=== PATIENT | male | born 1950 | race Caucasian/White ===

== ENCOUNTER 2022-07-22 11:07 | Emergency (ER) | payer MEDICARE, MEDICAID, SELFPAY ==
--- NOTE | ~2022-07-22 | CT_ITS ---
EXAMINATION: CT BRAIN AND CT CERVICAL SPINE WITHOUT CONTRAST CLINICAL INFORMATION: Fall COMPARISON: None TECHNIQUE: 5 mm thin axial and reformatted 2 mm thin sagittal and coronal images of cervical spine were obtained without contrast. Subsequently axial 3 mm thin and reformatted 2 mm thin sagittal and coronal images of cervical spine were obtained. DLP: 1430 mGy-cm FINDINGS: BRAIN: There is no acute intra-axial, extra-axial bleed, masses or midline shift. No acute infarction in evolution. There is no edema. The lateral ventricles are symmetrical in size and configuration without enlargement. Bone windows reveal no calvarial abnormality. There is no scalp soft tissue abnormality. Bilateral paranasal sinuses and mastoid air cells are well-aerated. The exam is limited secondary to patient motion. CERVICAL SPINE: There is normal cervical lordosis. The vertebral heights, alignment are normal. There is loss of C3-C4, C4-C5, C5-C6 and C6-C7 disc heights with mild ventral and posterior cervical spondylosis. The craniovertebral junction and the C1-C2 alignment is normal. No acute fracture, dislocation or lytic process seen. The paravertebral soft tissues are normal. The airway is widely patent. Bilateral visualized parotid, submandibular and thyroid lobes are symmetrical. The lung apices are clear. CT/CT cervical spine wo IV con IMPRESSION: 1. No acute intracranial process seen. 2. There is no visible acute fracture or dislocation of the cervical spine. There are degenerative disc changes and spondylosis at C3-C4 through C6-C7 disc levels. No visible acute fracture or dislocation seen.
--- NOTE | ~2022-07-22 | CT_ITS ---
EXAMINATION: CT BRAIN AND CT CERVICAL SPINE WITHOUT CONTRAST CLINICAL INFORMATION: Fall COMPARISON: None TECHNIQUE: 5 mm thin axial and reformatted 2 mm thin sagittal and coronal images of cervical spine were obtained without contrast. Subsequently axial 3 mm thin and reformatted 2 mm thin sagittal and coronal images of cervical spine were obtained. DLP: 1430 mGy-cm FINDINGS: BRAIN: There is no acute intra-axial, extra-axial bleed, masses or midline shift. No acute infarction in evolution. There is no edema. The lateral ventricles are symmetrical in size and configuration without enlargement. Bone windows reveal no calvarial abnormality. There is no scalp soft tissue abnormality. Bilateral paranasal sinuses and mastoid air cells are well-aerated. The exam is limited secondary to patient motion. CERVICAL SPINE: There is normal cervical lordosis. The vertebral heights, alignment are normal. There is loss of C3-C4, C4-C5, C5-C6 and C6-C7 disc heights with mild ventral and posterior cervical spondylosis. The craniovertebral junction and the C1-C2 alignment is normal. No acute fracture, dislocation or lytic process seen. The paravertebral soft tissues are normal. The airway is widely patent. Bilateral visualized parotid, submandibular and thyroid lobes are symmetrical. The lung apices are clear. CT/CT head/brain wo IV con IMPRESSION: 1. No acute intracranial process seen. 2. There is no visible acute fracture or dislocation of the cervical spine. There are degenerative disc changes and spondylosis at C3-C4 through C6-C7 disc levels. No visible acute fracture or dislocation seen.
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
[2022-07-22 11:23] VITALS: BP 151/85; PULSE 110; RESP 22; O2SAT 94
[2022-07-22 11:29] VITALS: BP 118/78; PULSE 95; O2SAT 98; BMI 25.2
[2022-07-22 12:15] LABS: MANUAL DIFF FLAG NO
[2022-07-22 12:22] LABS: Basophils Percent Auto 0.2 % (0-2); Eosinophils Absolute Auto 0.2 X10*3/uL (0.0-0.4); Eosinophils Percent Auto 4.9 % (0-4); Hematocrit 42.4 % (42.0-52.0); Hemoglobin 14.6 g/dl (14.0-18.0); Mean Corpuscular HGB Conc 34.4 g/dl (31.0-36.0); Mean Corpuscular Hemoglobin 36.8 pg (27.0-33.0); Mean Corpuscular Volume 106.8 fL (80.0-98.0); Mean Platelet Volume 10.5 fL (9.4-12.4); Monocytes Absolute Auto 0.2 X10*3/uL (0.1-1.2); Monocytes Percent Auto 5.4 % (2-11); Neutrophils Absolute Auto 1.7 x10*3/uL (2.0-8.3); Neutrophils Percent Auto 41.5 % (45-73); Platelet Count 135 X10*3/uL (160-400); Red Blood Count 3.97 X10*6/uL (4.60-5.80); Red Cell Distribution Width 12.7 % (11.0-16.0); White Blood Count 4.1 X10*3/uL (4.8-10.8)
[2022-07-22 12:33] LABS: Anion Gap 18 (12-20); Blood Urea Nitrogen 14 mg/dL (9-16); Calcium 9.7 mg/dL (8.4-10.2); Carbon Dioxide 27 mmol/L (22-29); Chloride 107 mmol/L (96-108); Creatinine Clr Calc Pharmacy 77.8; Estimated Glomerular Filt Rate > 60; Ethanol 356 mg/dL; Glucose Random 92 mg/dL (60-115); Potassium 4.1 mmol/L (3.3-5.1); Sodium 148 mmol/L (135-145)
== END 2022-07-22 15:56 | disposition home or self-care (01) ==
PROVIDERS: Emergency Provider Emergency Medicine
DX: F10.129 Alcohol abuse with intoxication, unspecified (principal); Y90.8 Blood alcohol level of 240 mg/100 ml or more; R51.9 Headache, unspecified; M54.2 Cervicalgia; Z79.899 Other long term (current) drug therapy
CPT/HCPCS: 36415; 70450; 72125; 80048; 82077; 82550; 85025; 85610; 99283; 99284

== ENCOUNTER 2023-07-24 22:53 | Emergency (ER) | payer MEDICARE, MEDICAID, SELFPAY ==
[2023-07-24 22:56] VITALS: BP 110/76; PULSE 71; O2SAT 96
[2023-07-24 23:22] VITALS: BP 95/71; PULSE 81; RESP 16; TEMP 36.6; O2SAT 100; BMI 28.3
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
--- NOTE | 2023-07-24 23:51 | PC.NURSE ---
Pt wants to go home, at bedside, charge nurse at bedside to discuss options at this time. Pt declining detox at this time. Pt able to walk steady on his feet and adamant about leaving. Pt given detox services information.
--- NOTE | 2023-07-24 23:53 | ED_ITS ---
HPI - Alcohol General Chief Complaint: ETOH/Substance Use Stated Complaint: etoh depressed Time Seen by Provider: 07/24/23 23:42 Source: patient Mode of arrival: EMS Limitations: no limitations History of Present Illness HPI narrative: 73-year-old male with a history of alcohol use disorder and depression who presents emergency department for evaluation of acute alcohol intoxication. The patient states that he has been depressed but he is not suicidal or homicidal. He states that he was drinking alcohol today. He states that he was in his hallway playing his guitar when the police arrived and insisted that he come to the emergency department for evaluation. The patient was seen here on 07/22/2023 for acute alcohol intoxication with an alcohol level of 357. Patient does not want to be here in the emergency department, he is refusing blood work, he does not want any further evaluation. Related Data Allergies Allergy/AdvReac Type Severity Reaction Status Date / Time SEASONAL ALLERGIES Allergy Mild ITCHING Uncoded 07/24/20 17:47 Review of Systems Review of Systems: Yes all other systems are reviewed and are negative PMFSH Past Medical History PMFSH Narrative: Social history: He does admit to drinking alcohol this evening, he does smoke cigarettes, he denies drug use Medical History Alcohol abuse Chronic back pain Social History Social History Alcohol intake: current Alcohol intake frequency: 3 or more drinks per day Alcohol type: beer, wine and hard liquor Patient Tobacco Use Status: Current someday Tobacco user Smoked in Last 30 Days: No Use of substances other than those prescribed or required for medical reasons: No Physical Exam ED Vital Signs: Vital Signs - 24 hr 07/24/23 23:22 Temperature 97.9 F Pulse Rate 81 Respiratory Rate 16 Blood Pressure 95/71 Pulse Oximetry 100 Oxygen Delivery Method Room Air BMI result Body Mass Index 28.3 Vital signs were normal Exam: General: Awake, alert in no distress Head: Normocephalic, atraumatic EENT: PERRL, Lids normal, sclera normal, conjunctiva normal, nose normal , ears normal, throat without erythema or exudates Neck: Supple, no adenopathy, trachea midline and nontender Lung: breath sounds symmetric, no wheezing, rales or rhonchi Chest: symmetric movement, nontender Heart: regular rate and rhythm, normal S1, S2 no murmurs or rubs Abdomen: soft, non-tender, nondistended, normal bowel sounds Back: no vertebral tenderness, no CVAT Extremities: no deformities, moves all extremities symmetrically Skin: no rashes, no lesion, normal color and warmth Neuro: Awake, alert, oriented, normal speech, cranial nerves intact, moves all extremities symmetrically. Gait is normal Psych: Pleasant, cooperative Medical Decision Making Medical Decision Making MDM Narrative: 73-year-old male with history of depression, alcohol use disorder chronic back pain who presents emergency department for evaluation of acute alcohol intoxication. Patient denied being suicidal or homicidal. He does admit to drinking alcohol. He was seen on 07/22/2023 for acute alcohol intoxication he states he does not want a re-evaluation at this time. He states that he is not interested in getting into a detox program and does not want to stay in the emergency department. Patient was able to walk without any difficulty, he does appear to be intoxicated but he is capable of making decisions and understand the consequences of leaving the emergency department while he is intoxicated. Patient was discharged home with numbers for detox programs. He is advised return emergency department if he wanted help with his depression or alcohol use disorder. Differential Diagnosis Differential Diagnoses: The differential diagnosis associated with the presentation includes Differential diagnosis includes was not limited to acute alcohol intoxication, electrolyte abnormalities, anemia, depression Chronic Conditions Patient?s care impacted by: Other (Alcohol use disorder) Discharge Plan Discharge Clinical Impression: Depression Alcoholic intoxication Qualifiers: Complication of substance-induced condition: uncomplicated Qualified Code(s): F10.920 - Alcohol use, unspecified with intoxication, uncomplicated Patient Disposition: Home, Self-Care Additional Instructions: You told us that you are not suicidal and you do not want to harm anyone therefore we do not have the ability to keep you here in the hospital against her wishes , therefore we are going to discharge you. We are giving you numbers to detox programs. Please call these numbers to try to get into a detox program to help with your alcohol use disorder. If you change your mind and want to get help, we can have our disaster recovery consultant see and you can also talk to our care team about getting further help for your depression. Continue taking medications as prescribed by your providers. Follow-up with your doctor in 2 days. Please return to the emergency department if your symptoms get worse or if you develop any symptoms that are concerning to you.
--- NOTE | 2023-07-24 23:58 | PC.NURSE ---
with provider and rn at bedside pt ambulated with steady gait. alert oriented talking in full sentences, skin pink warm and dry. coffee and sandwhich given.
[2023-07-25] VITALS: BP 113/69; PULSE 87; RESP 18; TEMP 37.1; O2SAT 100
== END 2023-07-25 00:10 | disposition home or self-care (01) ==
PROVIDERS: Emergency Provider Emergency Medicine Emergency Medical Services
DX: F10.129 Alcohol abuse with intoxication, unspecified (principal); Y90.8 Blood alcohol level of 240 mg/100 ml or more; F33.1 Major depressive disorder, recurrent, moderate; Z79.899 Other long term (current) drug therapy; Z71.51 Drug abuse counseling and surveillance of drug abuser
CPT/HCPCS: 99284

== ENCOUNTER 2023-10-27 13:49 | Outpatient (REF) | payer MEDICARE, MEDICAID, SELFPAY ==
[2023-10-27 16:52] LABS: Alanine Aminotransferase 19 U/L (0-40); Albumin Level 3.9 g/dL (3.5-5.0); Alkaline Phosphatase 65 U/L (39-117); Aspartate Amino Transferase 27 U/L (5-37); Bilirubin Direct < 0.2 mg/dL (0.0-0.5); Bilirubin Total 0.2 mg/dL (0.0-1.0); Total Protein 7.7 g/dL (6.5-8.0)
[2023-10-28 08:01] LABS: HBS Num1 76.57 mIU/mL (0-7.99); HBc Num1 0.17 S/CO (0.00-0.79); HBsAGNum1 0.29 S/CO (0.00-0.99); HIV AB/AG Nonreactive (Nonreactive); HIV Num 1 0.04 S/CO (0.00-0.99); Hepatitis B Core Antibody Nonreactive (Nonreactive); Hepatitis B Surface Antigen Negative (Negative); Syphilis Screen Reactive (Nonreactive); ~HepC Num1 0.12 S/CO (0.00-0.79); ~Hepatitis B Surface Antibody REACTIVE (Nonreactive); ~Hepatitis C Antibody Nonreactive (Nonreactive)
[2023-10-28 08:14] LABS: Hepatitis A Antibody IgG REACTIVE (Nonreactive); ~Hepatitis A Antibody IgG 9.62 S/CO (0.00-0.99)
[2023-10-30 15:49] LABS: TS Negative Control Passed; TS Panel A 0; TS Panel B 0; TS Positive Control Passed; TSpotTB Negative (Negative)
[2023-11-07 15:32] LABS: RPR Quantitative Non-Reactive (Nonreactive); T.Pallidum Particle Agg Test Reactive (Nonreactive)
== END 2023-10-27 13:50 | disposition home or self-care (01) ==
LOC: HO.HHCL 13:49
PROVIDERS: Visit Provider Family Medicine
DX: Z11.4 Encounter for screening for human immunodeficiency virus [HIV] (principal); Z11.1 Encounter for screening for respiratory tuberculosis; F10.20 Alcohol dependence, uncomplicated
CPT/HCPCS: 36415; 80076; 86481; 86592; 86704; 86706; 86708; 86780; 86803; 87340; 87389

== ENCOUNTER 2024-03-05 09:20 | Outpatient (REF) | payer OTHER, SELFPAY ==
--- NOTE | ~2024-03-05 | XR_ITS ---
EXAMINATION: XR HAND, LEFT CLINICAL INFORMATION: Left thumb trigger finger. COMPARISON: None available. TECHNIQUE: PA, lateral, and oblique views of the left hand. FINDINGS: No acute fracture or dislocation. Normal carpal alignment. Minimal joint space narrowing with tiny marginal osteophytes throughout the metacarpophalangeal joints. Additional joint space narrowing with marginal osteophytes throughout the interphalangeal joints, most prominent at the second distal interphalangeal joint where there are small central erosions, which could indicate a degree of erosive osteoarthritis. No abnormal soft tissue calcification. XR/XR hand LT min 3V IMPRESSION: 1. Degenerative arthritis throughout the interphalangeal joints, most prominent at the second distal interphalangeal joint where there are small central erosions, which could indicate a degree of erosive osteoarthritis. 2. Mild degenerative arthritis throughout the metacarpophalangeal joints.
== END 2024-03-05 09:21 | disposition home or self-care (01) ==
LOC: HO.HHCX 09:20
PROVIDERS: Visit Provider Internal Medicine
DX: M65.312 Trigger thumb, left thumb (principal); M19.042 Primary osteoarthritis, left hand
CPT/HCPCS: 73130

== ENCOUNTER 2025-01-31 20:58 | Inpatient (IN) | payer MEDICARE, OTHER, SELFPAY ==
--- NOTE | ~2025-01-31 | CT_ITS ---
CLINICAL HISTORY: abd pain, very elevated LFTs CT abdomen and pelvis with contrast Comparison: None Findings: Tiny bilateral pleural effusions. Multiple indeterminate hepatic hypodensities worrisome for metastases. Enhancing masslike thickening of the gallbladder near the fundus worrisome for malignancy. Areas of ascending colonic wall thickening and hyperenhancement are nonspecific but worrisome for malignancy. Large volume ascites. Adjacent to the pancreatic body and neck there is a low-density hypoenhancing mass measuring 6.8 x 3.3 cm maximum axial dimension on series 3, image 32. This is suspicious for possible pancreatic neoplasm or potentially lymphadenopathy. Adrenal glands and kidneys normal. No acute fracture or suspicious bone lesion. IMPRESSION: 1. Numerous hepatic hypodensities suspicious for metastatic disease. 2. Enhancing gallbladder mass suspicious for malignancy. 3. Hypoenhancing peripancreatic soft tissue mass worrisome for lymphadenopathy or potentially primary pancreatic neoplasm. 4. Hypoenhancing areas of colonic wall thickening could represent neoplasm, versus infectious/inflammatory colitis or less likely ischemic colitis. 5. Tiny bilateral pleural effusions. 6. Moderate volume ascites. Malignant ascites not excluded. This document has been electronically signed by: Jayce Banegas MD on 01/31/2025 23:08:29
--- NOTE | ~2025-01-31 | US_ITS ---
EXAMINATION: US GUIDED PARACENTESIS CLINICAL INFORMATION: Liver masses, gallbladder mass, pancreatic masses, ascites, diagnostic and therapeutic drainage. COMPARISON: Correlation made with CT abdomen and pelvis 01/31/2025. PROCEDURE DETAILS: Following the discussion of the risks, benefits and alternatives to the procedure, written informed consent was obtained from the patient. The patient was placed supine on the exam table. A preprocedure time-out was performed per [facility] protocol. The right lower quadrant was marked, using ultrasound guidance, prepped and draped using sterile fashion. Using an ultrasound to identify the largest pocket of fluid to safely access, the right lower quadrant overlying skin was marked for paracentesis. Skin and subcutaneous tissues were anesthetized with 7 mL of 1% lidocaine sterile solution. Subsequently, a 5-Hungarian trochar catheter ([employer]) was advanced into the ascites and upon aspiration of fluid, trocar was removed, and catheter left in place. The catheter was connected to Vacutainer suction. 3300 mL of serous hardeep fluid was drained via vacuum bottle. The patient tolerated the procedure well without complications. The catheter was removed, area cleansed, and a sterile dressing applied. Ascitic samples were sent to laboratory for analysis. Patient tolerated the procedure well with no immediate complication. FINDINGS: Large volume abdominopelvic ascites. US/US paracentesis abd w/image IMPRESSION: RLQ therapeutic and diagnostic paracentesis, yielding 3300 mL of serous ascites. Electronically signed by: Adrien Desai MD 02/04/2025 12:27 PM EDT
[2025-01-31 21:07] VITALS: BP 111/63; BP 98/60; PULSE 108; PULSE 97; RESP 17; TEMP 36.9; O2SAT 80; O2SAT 98; BMI 21.4
[2025-01-31 21:34] LABS: MANUAL DIFF FLAG NO
[2025-01-31 21:37] LABS: Basophils Percent Auto 0.1 % (0-2); Eosinophils Percent Auto 0.1 % (0-4); Hematocrit 22.7 % (42.0-52.0); Imm Gran Abs Auto 0.15 X10*3/uL (0.00-0.03); Imm Gran Pct Auto 0.8 % (0.0-0.4); Lymphocytes Absolute Auto 0.9 X10*3/uL (1.2-4.9); Lymphocytes Percent Auto 5.1 % (20-40); Mean Corpuscular HGB Conc 30.4 g/dl (31.0-36.0); Mean Corpuscular Hemoglobin 22.4 pg (27.0-33.0); Mean Corpuscular Volume 73.7 fL (80.0-98.0); Monocytes Percent Auto 5.3 % (2-11); Neutrophils Absolute Auto 16.4 x10*3/uL (2.0-8.3); Neutrophils Percent Auto 88.6 % (45-73); Platelet Count 492 X10*3/uL (160-400); Red Blood Count 3.08 X10*6/uL (4.60-5.80); Red Cell Distribution Width 18.2 % (11.0-16.0); White Blood Count 18.5 X10*3/uL (4.8-10.8)
[2025-01-31 21:44] LABS: Hemoglobin 6.9 g/dl (14.0-18.0)
[2025-01-31 21:53] LABS: Alanine Aminotransferase 95 U/L (0-40); Albumin Level 1.8 g/dL (3.5-5.0); Alkaline Phosphatase 392 U/L (39-117); Anion Gap 14 (12-20); Aspartate Amino Transferase 218 U/L (5-37); Bilirubin Total 14.4 mg/dL (0.0-1.0); Blood Urea Nitrogen 21 mg/dL (9-16); Carbon Dioxide 22 mmol/L (22-29); Chloride 99 mmol/L (96-108); Creatinine Clr Calc Pharmacy 71.6; Estimated Glomerular Filt Rate > 60; Ethanol < 10 mg/dL; Glucose Random 149 mg/dL (60-115); Lipase 58 U/L (8-78); Magnesium 2.2 mg/dL (1.6-2.6); Sodium 131 mmol/L (135-145); Total Protein 6.1 g/dL (6.5-8.0)
[2025-01-31] MEDS: iohexoL 350 MG/ML 100 ML INFUS..BTL 85 ML IV (22:27)
[2025-01-31 22:49] LABS: OBS1 POSITIVE (NEGATIVE)
[2025-01-31 22:50] LABS: OBS Int Ctl Valid YES
[2025-01-31 23:13] VITALS: BP 99/61; PULSE 92; RESP 16; O2SAT 100
--- NOTE | 2025-01-31 23:19 | PC.NURSE ---
Pt A&Ox3 respirations even unlabored. BIBA from home for reports of increased weakness x weeks. Pt skin and sclera extremely jaundice. Pt reports drinking very heavily and quitting 2 weeks ago. Endorsing intermittent mid abd pain worse when eating or drinking. Denies N/V, denies diarrrhea or constipation, denies urinary symptoms. Pt states he needs to hold onto fay when walking now and unable to stand for long periods of times. IV access bilaterally, awaiting CT results and MD reeval, aware of plan of care.
[2025-02-01] VITALS (12 sets, daily range): BP systolic 93–116; BP diastolic 56–73; PULSE 79–97; RESP 14–18; TEMP 36.4–36.9; O2SAT 98–100; BMI 20.9
--- NOTE | 2025-02-01 01:15 | ED.GENADULT ---
HPI - General Adult General Chief complaint: General Medical Stated complaint: weakness x1 month Time Seen by Provider: 01/31/25 21:51 Source: patient and EMS Mode of arrival: EMS Limitations: no limitations History of Present Illness ED Provider: Dr. Anne Marie Andres HPI narrative: Patient comes to the emergency room via ambulance complaining of 3 weeks of increased weakness, shortness of breath with exertion, intermittent abdominal pain. Patient states that he used to drink a very large amount of alcohol every day until 3 weeks ago. Patient reports a 30 lb weight loss in the last 3 weeks. Also, patient started noticed that he has been becoming more jaundiced over last week. Patient denies any rectal bleeding, denies vomiting blood. At this time, patient states that he is feels abdominal fullness but no pain. Related Data Allergies Allergy/AdvReac Type Severity Reaction Status Date / Time SEASONAL ALLERGIES Allergy Mild ITCHING Uncoded 01/31/25 21:10 Review of Systems Review of Systems: Constitutional : Complaining of 30 lb weight loss in 1 month, denies fever or chills, complaining of fatigue and generalized malaise for several weeks ENT/Mouth : No Hearing loss, No Ear Pain, No Nasal Congestion, No Sinus Pain, No Hoarseness, No sore throat, No Rhinorrhea, No Swallowing Difficulty Eyes: No Eye Pain, No Swelling, No Redness, No Foreign Body, No Discharge, No Vision Changes Cardiovascular : No Chest Pain, No SOB, No Dyspnea on Exertion, No Orthopnea, No Edema, No Palpitations Respiratory : No Cough, No Sputum, No Wheezing, No Smoke Exposure, No Dyspnea Gastrointestinal : No Nausea, No Vomiting, No Diarrhea, No Constipation, complaining of abdominal fullness, intermittent discomfort and pain. Denies rectal bleeding Genitourinary : no irregular bleeding, No Dysuria, No Urinary Frequency, No Hematuria, No Urinary Incontinence, No Urgency, No Flank Pain, No Urinary Flow Changes, No Hesitancy Musculoskeletal : No joint pain, No Myalgias, No Joint Swelling Skin : No Skin Lesions, No rash Neuro : No Weakness, No Numbness, No Paresthesias, No Loss of Consciousness, No Dizziness, No Headache Psych : No Anxiety/Panic, No Depression, No SI/HI/AH/VH, No Social Issues, Heme/Lymph: No Bruising, No Bleeding,No Lymphadenopathy Endocrine : No Polyuria, No Polydipsia, No Temperature Intolerance PMFSH Past Medical History Medical History Alcohol abuse Chronic back pain Social History Social History Alcohol intake: former Patient Tobacco Use Status: Current someday Tobacco user Smoked in Last 30 Days: No Use of substances other than those prescribed or required for medical reasons: No Advance Directives: No Advance Directives Information Provided: Yes Physical Exam ED Vital Signs: Vital Signs - 24 hr 01/31/25 21:07 01/31/25 23:13 Temperature 98.4 F Pulse Rate 108 H 92 Respiratory Rate 17 16 Blood Pressure 111/63 99/61 Pulse Oximetry 98 100 Oxygen Delivery Method Room Air Room Air BMI result Body Mass Index 21.4 Const Other: Appearance: Alert. Oriented X3. Ill-appearing, cachectic, muscle wasting more obvious in the face and temporal region Eyes: Pupils equal, round and reactive to light. Sclera significantly icteric ENT: Pharynx normal. Neck: Normal inspection. Neck supple. No lymph nodes noted. No crepitus CVS: Normal heart rate and rhythm. Pulses normal. Normal S1 and S2 Respiratory: No respiratory distress. Breath sounds normal. No Wheezing. No rales Abdomen: Soft and no significant tenderness to palpation, no obvious signs of ascites Skin: Patient is significantly jaundiced Extremities: +1 pitting edema bilaterally. No Lacerations. No Rash Neuro: Oriented X 3. No motor deficit. No sensory deficit. Moving all extremities. No slurred speech. CN 2 through 12 grossly intact Psych: calm, cooperative, normal affect Course Course Course Narrative: All of patient's labs and imaging pending. At this time, patient denies any pain. Patient states that he is feels very weak tired Patient reports that the last time that he drank alcohol was over 3 weeks ago. Medications Administered Generic Name Dose Route Start Last Admin Trade Name Freq PRN Reason Stop Dose Admin Albumin Human 100 mls @ 100 mls/hr 02/01/25 01:00 02/01/25 01:44 Kedbumin 25 % IV 02/01/25 07:59 100 mls/hr Q6H PAM Administration Discontinued Medications Generic Name Dose Route Start Last Admin Trade Name Freq PRN Reason Stop Dose Admin Iohexol 85 ml 01/31/25 22:26 01/31/25 22:27 Iohexol 350 Mg/Ml 100 Ml Infus..Btl IV 01/31/25 22:27 85 ml ONCE ONE Administration Medical Decision Making Medical Decision Making [facility] Narrative: My interpretation of labs: Patient's white blood cell count 18.5, hemoglobin 6.9, hematocrit 22.7, platelets 492. INR slightly elevated 1.3. No significant abnormality in patient's chemistry. However, patient's LFTs are significantly elevated. Total bilirubin 14.4, AST 218, ALT 95, alk-phos 392. Albumin 1.8, lipase within normal limits . Urinalysis negative for UTI. Stool occult blood is heme positive, no active GI bleed noted. ETOH negative. Patient is anemic, symptomatic. I discussed with the patient that he would benefit from a blood transfusion. I discussed with the patient the risks versus benefits of a blood transfusion, patient agreeable to proceed with a blood transfusion. Patient has signed the consent. CT scan is very concerning for a possible primary pancreatic neoplasm with metastasis to liver and gallbladder. It is possible that the cancer may have also affected the colon. Patient does not have any diarrhea or vomiting, infectious colitis less likely to be the diagnosis. I discussed the above-mentioned with the patient. 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 I discussed with the patient that he will need further workup to confirm the diagnosis. Patient asked me to call his neighbor, the lady that is listed under our contact information. However, when I called, seems that the phone may be disconnected. I was unable to leave a message. I discussed the patient with Dr. Arnold from the Medicine team, patient being admitted. Tomorrow, patient may need several consults including heme Onc and Gastroenterology Differential Diagnosis Differential Diagnoses: The differential diagnosis associated with the presentation includes (Malignancy, choledocholithiasis, cholecystitis, pancreatitis) Admission/Observation Consideration of admission/observation: Escalation of care including admission/observation considered Consult Healthcare Provider Management of the patient was discussed with: Hospitalist Lab Data [facility] Lab Attestation statement: I reviewed the patient's lab results. 01/31/25 21:30 01/31/25 21:30 Labs: Lab Results 01/31/25 01/31/25 01/31/25 Range/Units 21:30 21:30 22:40 WBC 18.5 H (4.8-10.8) X10*3/uL RBC 3.08 L D (4.60-5.80) X10*6/uL Hgb 6.9 L* D (14.0-18.0) g/dl Hct 22.7 L D (42.0-52.0) % MCV 73.7 L (80.0-98.0) fL MCH 22.4 L (27.0-33.0) pg MCHC 30.4 L (31.0-36.0) g/dl RDW 18.2 H (11.0-16.0) % Plt Count 492 H D (160-400) X10*3/uL MPV 9.0 L (9.4-12.4) fL Immature Gran % (Auto) 0.8 H (0.0-0.4) % Neut % (Auto) 88.6 H (45-73) % Lymph % (Auto) 5.1 L (20-40) % [place] % (Auto) 5.3 (2-11) % Eos % (Auto) 0.1 (0-4) % Baso % (Auto) 0.1 (0-2) % Lymph # (Auto) 0.9 L (1.2-4.9) X10*3/uL [place] # (Auto) 1.0 (0.1-1.2) X10*3/uL Eos # (Auto) 0.0 (0.0-0.4) X10*3/uL Baso # (Auto) 0.0 (0.0-0.2) X10*3/uL Abs Immat Gran (auto) 0.15 H (0.00-0.03) X10*3/uL Absolute Neuts (auto) 16.4 H (2.0-8.3) x10*3/uL Absolute Nucleated RBC 0.000 (0.0-0.012) X10*3/uL Nucleated RBC % (auto) 0.0 (0.0-0.2) /100WBC PT (10.9-12.4) SEC INR (0.9-1.1) Sodium 131 L (135-145) mmol/L Potassium 4.0 (3.3-5.1) mmol/L Chloride 99 (96-108) mmol/L Carbon Dioxide 22 (22-29) mmol/L Anion Gap 14 (12-20) BUN 21 H (9-16) mg/dL Creatinine 0.78 (0.5-1.4) mg/dL Estim Creat Clear Calc 71.6 Estimated GFR > 60 Random Glucose 149 H (60-115) mg/dL Calcium 8.0 L D (8.4-10.2) mg/dL Magnesium 2.2 (1.6-2.6) mg/dL Total Bilirubin 14.4 H Cancelled (0.0-1.0) mg/dL AST 218 H (5-37) U/L ALT 95 H (0-40) U/L Alkaline Phosphatase 392 H (39-117) U/L Total Protein 6.1 L (6.5-8.0) g/dL Albumin 1.8 L (3.5-5.0) g/dL Lipase 58 (8-78) U/L Urine Color Urine Appearance Urine pH (5.0-9.0) Ur Specific [place] (1.005-1.025) Urine Protein (Neg-Trace) mg/dL Urine Glucose (UA) (Negative) mg/dL Urine Ketones (Negative) mg/dL Urine Blood (Negative) Urine Nitrite (Negative) Ur Leukocyte Esterase (Negative) Urine RBC (0-2) /HPF Urine WBC (0-5) /HPF Ur Squamous Epith Cells (0-2) /HPF Urine Bacteria (None Seen) Hyaline Casts (0-2) /LPF Granular Casts Stool Occult Blood (NEGATIVE) Ethyl Alcohol < 10 mg/dL Blood Type B Positive Antibody Screen NEGATIVE Crossmatch See Detail 01/31/25 02/01/25 02/01/25 Range/Units 22:41 01:12 01:35 WBC (4.8-10.8) X10*3/uL RBC (4.60-5.80) X10*6/uL Hgb (14.0-18.0) g/dl Hct (42.0-52.0) % MCV (80.0-98.0) fL MCH (27.0-33.0) pg MCHC (31.0-36.0) g/dl RDW (11.0-16.0) % Plt Count (160-400) X10*3/uL MPV (9.4-12.4) fL Immature Gran % (Auto) (0.0-0.4) % Neut % (Auto) (45-73) % Lymph % (Auto) (20-40) % [place] % (Auto) (2-11) % Eos % (Auto) (0-4) % Baso % (Auto) (0-2) % Lymph # (Auto) (1.2-4.9) X10*3/uL [place] # (Auto) (0.1-1.2) X10*3/uL Eos # (Auto) (0.0-0.4) X10*3/uL Baso # (Auto) (0.0-0.2) X10*3/uL Abs Immat Gran (auto) (0.00-0.03) X10*3/uL Absolute Neuts (auto) (2.0-8.3) x10*3/uL Absolute Nucleated RBC (0.0-0.012) X10*3/uL Nucleated RBC % (auto) (0.0-0.2) /100WBC PT 15.0 H (10.9-12.4) SEC INR 1.3 H (0.9-1.1) Sodium (135-145) mmol/L Potassium (3.3-5.1) mmol/L Chloride (96-108) mmol/L Carbon Dioxide (22-29) mmol/L Anion Gap (12-20) BUN (9-16) mg/dL Creatinine (0.5-1.4) mg/dL Estim Creat Clear Calc Estimated GFR Random Glucose (60-115) mg/dL Calcium (8.4-10.2) mg/dL Magnesium (1.6-2.6) mg/dL Total Bilirubin (0.0-1.0) mg/dL AST (5-37) U/L ALT (0-40) U/L Alkaline Phosphatase (39-117) U/L Total Protein (6.5-8.0) g/dL Albumin (3.5-5.0) g/dL Lipase (8-78) U/L Urine Color Dark Yellow Urine Appearance Clear Urine pH 6.0 (5.0-9.0) Ur Specific [place] >= 1.030 H (1.005-1.025) Urine Protein Trace (Neg-Trace) mg/dL Urine Glucose (UA) Negative (Negative) mg/dL Urine Ketones Trace (Negative) mg/dL Urine Blood Negative (Negative) Urine Nitrite Negative (Negative) Ur Leukocyte Esterase Trace H (Negative) Urine RBC 0-2 (0-2) /HPF Urine WBC 0-5 (0-5) /HPF Ur Squamous Epith Cells 3-5 (0-2) /HPF Urine Bacteria None Seen (None Seen) Hyaline Casts 3-5 (0-2) /LPF Granular Casts Present Stool Occult Blood POSITIVE (NEGATIVE) Ethyl Alcohol mg/dL Blood Type Antibody Screen Crossmatch Independent Interpretation I performed an independent interpretation of an: CT Scan Radiology Impression Discussion of test interpretation with radiology: I have reviewed the radiologist's reading. Radiologist Impression: Findings: Tiny bilateral pleural effusions. Multiple indeterminate hepatic hypodensities worrisome for metastases. Enhancing masslike thickening of the gallbladder near the fundus worrisome for malignancy. Areas of ascending colonic wall thickening and hyperenhancement are nonspecific but worrisome for malignancy. Large volume ascites. Adjacent to the pancreatic body and neck there is a low-density hypoenhancing mass measuring 6.8 x 3.3 cm maximum axial dimension on series 3, image 32. This is suspicious for possible pancreatic neoplasm or potentially lymphadenopathy. Adrenal glands and kidneys normal. No acute fracture or suspicious bone lesion. IMPRESSION: 1. Numerous hepatic hypodensities suspicious for metastatic disease. 2. Enhancing gallbladder mass suspicious for malignancy. 3. Hypoenhancing peripancreatic soft tissue mass worrisome for lymphadenopathy or potentially primary pancreatic neoplasm. 4. Hypoenhancing areas of colonic wall thickening could represent neoplasm, versus infectious/inflammatory colitis or less likely ischemic colitis. 5. Tiny bilateral pleural effusions. 6. Moderate volume ascites. Malignant ascites not excluded. Critical Care Time Critical Care Time Critical Care Time: Yes Total Critical Care Time: 90 Attestation: I have personally provided critical care time. Time includes review of lab data, radiology results, discussion with consultants, and monitoring for potential decompensation. Intervention performed as documented. Discharge Plan Discharge Clinical Impression: Pancreatic mass, Anemia, Occult GI bleeding, Malnutrition Patient Disposition: Admitted As Inpatient Print Language: [place]ian
[2025-02-01 01:34] LABS: INTERNATIONAL NORM RATIO 1.3 (0.9-1.1)
[2025-02-01 01:42] LABS: Appearance Urine Clear; Color Urine Dark Yellow; Glucose Urine UA Negative (Negative); Leukocyte Esterase Urine Trace (Negative); Nitrite Urine Negative (Negative); Specific Gravity - Urine >= 1.030 (1.005-1.025); UMIC TRIGGER UACC YES; Urine Blood Negative (Negative); Urine Ketones Trace mg/dL (Negative); Urine Protein Trace mg/dL (Neg-Trace)
[2025-02-01] MEDS: Albumin Human 25 % 100 ML IV ×2 (01:44→06:40)
--- NOTE | 2025-02-01 01:46 | PC.NURSE ---
Albumin hung and infusing without difficulty, plan for admission, pt aware and agreeable to plan of care. Awaiting blood transfusion and hospitalist for consult.
[2025-02-01 01:56] LABS: Bacteria Urine None Seen (None Seen); Granular Casts Urine Present; RBC Urine 0-2 /HPF (0-2); WBC Urine 0-5 /HPF (0-5)
--- NOTE | 2025-02-01 03:32 | PC.NURSE ---
Blood hung and infusing without difficulty, pt resting in bed no s/s transfusion reaction at this time. No change in physical assessment. Will continue to monitor.
--- NOTE | 2025-02-01 05:54 | PC.NURSE ---
Pt resting in bed skin jaundiced warm and dry, respirations even unlabored, VSS. Blood transfusion continues to infuse without difficulty.
--- NOTE | 2025-02-01 06:22 | P.HPHOSP_ITS ---
History of Present Illness Date of Service: 02/01/25 Chief Complaint: gen weakness 74-year-old male with a past medical history of alcohol use disorder presented to the hospital today with a chief complaint of generalized weakness. Patient reports that for about 3 weeks he has been not feeling well; has been feeling generally weak and tired. Other day when he went to groceries he felt exhausted, had shortness of breath on with minimal activity. Mentions at baseline he used to drink about 50 beers per day-which he stopped drinking about 3 weeks ago. Mentions his appetite is almost 0 and has not been eating. Also noted his skin color change to yellow. Reports having diffuse abdominal discomfort. Mentions few days ago he had bright red blood per rectum. Denies any chest pain or palpitations. Denies any urinary symptoms. Denies any fever chills cough or sputum production. Patient mentioned he lost almost 30 lb in past 3-4 weeks. Review of all other systems is negative except mentioned above ER course: Per ER team, patient appeared eat today, has distended abdomen, CT abdomen pelvis showed numerous hepatic hypodensities concerning for metastatic disease, and has a gallbladder mass suspicious for malignancy, also hypo enhancing peripancreatic soft tissue worrisome for lymphadenopathy or possible primary pancreatic neoplasm. Also noted colonic thickening concerning for neoplasm versus infectious versus inflammatory colitis. Noted moderate volume ascites- malignant ascites not excluded; on labs noted to have leukocytosis of 18.5; hemoglobin of 6.9-patient being transfused 2 units of PRBC. Stool guaiac positive. T bili 14.4. AST 2018 ALT 95 albumin 1.8 [facility] Medical History Alcohol abuse Chronic back pain Social History Alcohol intake: former Patient Tobacco Use Status: Never used Tobacco Meds Allergies Allergy/AdvReac Type Severity Reaction Status Date / Time SEASONAL ALLERGIES Allergy Mild ITCHING Uncoded 01/31/25 21:10 Active Medications: Current Medications Benzonatate (Benzonatate 100 Mg Capsule) 100 mg PO TID PRN PRN Reason: Cough Calcium Carbonate (Calcium Carbonate 750 Mg Tab.Chew) 750 mg PO Q4H PRN PRN Reason: Heartburn Albumin Human (Kedbumin 25 %) 100 mls @ 100 mls/hr IV Q6H PAM Stop: 02/01/25 07:59 Last Infusion: 02/01/25 03:01 Dose: Infused Magnesium Hydroxide (Milk Of Magnesia 30 Ml Oral.Susp) 30 ml PO DAILY PRN PRN Reason: Constipation Melatonin (Melatonin 3 Mg Tablet) 6 mg PO BEDTIME PRN PRN Reason: Insomnia Sodium Chloride (0.9 % Sodium Chloride Flush 3 Ml Syringe) 3 ml IVFLUSH QSHIFT [facility] Physical Exam 2 Vital Signs and Narrative: Vital Signs: Last Vital Signs Temp 98.4 F 02/01/25 03:44 Pulse 82 02/01/25 05:53 Resp 16 02/01/25 05:53 BP 96/58 L 02/01/25 05:53 Pulse Ox 98 02/01/25 05:53 O2 Del Method Room Air 02/01/25 05:53 BMI result Body Mass Index 21.4 Gen: Appears be in no acute distress HEENT: NCAT, Moist mucosa. Icteric sclera Pulmonary: Vesicular breath sounds, fair air entry CVS: Normal S1-S2 Abdomen: BS+, Soft, distended. Nontender. Extremities: Warm well perfused Neuro: Alert and awake. Oriented x3. Grossly nonfocal. Results Labs 01/31/25 21:30 01/31/25 21:30 Labs: Laboratory Results - last 24 hr 01/31/25 01/31/25 01/31/25 21:30 21:30 22:40 MCV 73.7 L MCH 22.4 L MCHC 30.4 L RDW 18.2 H Plt Count 492 H D MPV 9.0 L Immature Gran % (Auto) 0.8 H Neut % (Auto) 88.6 H Lymph % (Auto) 5.1 L [place] % (Auto) 5.3 Eos % (Auto) 0.1 Baso % (Auto) 0.1 Lymph # (Auto) 0.9 L [place] # (Auto) 1.0 Eos # (Auto) 0.0 Baso # (Auto) 0.0 Abs Immat Gran (auto) 0.15 H Absolute Neuts (auto) 16.4 H Absolute Nucleated RBC 0.000 Nucleated RBC % (auto) 0.0 PT INR Anion Gap 14 Estim Creat Clear Calc 71.6 Estimated GFR > 60 Random Glucose 149 H Calcium 8.0 L D Magnesium 2.2 Total Bilirubin 14.4 H Cancelled AST 218 H ALT 95 H Alkaline Phosphatase 392 H Total Protein 6.1 L Albumin 1.8 L Lipase 58 Urine Color Urine Appearance Urine pH Ur Specific [place] Urine Protein Urine Glucose (UA) Urine Ketones Urine Blood Urine Nitrite Ur Leukocyte Esterase Urine RBC Urine WBC Ur Squamous Epith Cells Urine Bacteria Hyaline Casts Granular Casts Stool Occult Blood Ethyl Alcohol < 10 Blood Type B Positive Antibody Screen NEGATIVE Crossmatch See Detail 01/31/25 02/01/25 02/01/25 22:41 01:12 01:35 MCV MCH MCHC RDW Plt Count MPV Immature Gran % (Auto) Neut % (Auto) Lymph % (Auto) [place] % (Auto) Eos % (Auto) Baso % (Auto) Lymph # (Auto) [place] # (Auto) Eos # (Auto) Baso # (Auto) Abs Immat Gran (auto) Absolute Neuts (auto) Absolute Nucleated RBC Nucleated RBC % (auto) PT 15.0 H INR 1.3 H Anion Gap Estim Creat Clear Calc Estimated GFR Random Glucose Calcium Magnesium Total Bilirubin AST ALT Alkaline Phosphatase Total Protein Albumin Lipase Urine Color Dark Yellow Urine Appearance Clear Urine pH 6.0 Ur Specific [place] >= 1.030 H Urine Protein Trace Urine Glucose (UA) Negative Urine Ketones Trace Urine Blood Negative Urine Nitrite Negative Ur Leukocyte Esterase Trace H Urine RBC 0-2 Urine WBC 0-5 Ur Squamous Epith Cells 3-5 Urine Bacteria None Seen Hyaline Casts 3-5 Granular Casts Present Stool Occult Blood POSITIVE Ethyl Alcohol Blood Type Antibody Screen Crossmatch Assessment and Plan (1) Anemia: Qualifiers: Anemia type: unspecified type Qualified Code(s): D64.9 - Anemia, unspecified Status: Acute Plan 74-year-old male with a past medical history of alcohol use disorder presented to the hospital today with a chief complaint of generalized weakness. Admitted for following Anemia: Secondary to occult GI blood loss. Stool guaiac positive Hemoglobin on presentation was 6.9 Patient being transfused 2 units of PRBC NPO GI consult IV fluids Pancreatic neoplasm: Gallbladder mass: Liver metastasis: Colonic wall thickening: Transaminitis: Elevated T bili: Per CT scan concerning for possible primary pancreatic neoplasm. Will obtain AFP, CEA levels Hematology oncology consult for further recommendations Gastroenterology consult as mentioned above Ascites: Concerning for possible malignant ascites. Will defer to the day hospitalist to follow with IR for diagnostic and therapeutic paracentesis. Ceftriaxone given empirically Adult failure to thrive: Protein calorie malnutrition: Nutrition consult Alcohol use disorder: Patient has stopped drinking about 3 weeks ago. No signs of withdrawal currently. DVT prophylaxis: SCD boots Code status: Full code Quality Stroke Does the patient have a stroke diagnosis?: No VTE Prior VTE?: No VTE Risk Level:: Medical - moderate - high VTE Device Contraindication: N/A - Device Ordered VTE Drug Contraindication: Treatment Not Indicated
--- NOTE | 2025-02-01 06:46 | PC.NURSE ---
Blood transfusion completed, no transfusion reactions noted. 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 Albumin hung and infusing without difficulty. VSS. Report given to Jessica WELCH, pt exits my care at this time.
--- NOTE | 2025-02-01 07:30 | P.CNGI_ITS ---
History of Present Illness Data of Consult Service Date: 02/01/25 Requesting physician: Levar Arnold Primary Care Provider: Diana Orantes MD HPI Reason for consult: Pancreatic neoplasm suspected; liver lesions; elevated T bili 01/31/[address] SCAN SHOWED: 1. Numerous hepatic hypodensities suspicious for metastatic disease. 2. Enhancing gallbladder mass suspicious for malignancy. 3. Hypoenhancing peripancreatic soft tissue mass worrisome for lymphadenopathy or potentially primary pancreatic neoplasm. 4. Hypoenhancing areas of colonic wall thickening could represent neoplasm, versus infectious/inflammatory colitis or less likely ischemic colitis. 5. Tiny bilateral pleural effusions. 6. Moderate volume ascites. Malignant ascites not excluded. [facility] Past Medical History Medical History Alcohol abuse Chronic back pain Social History Social History Alcohol intake: former Patient Tobacco Use Status: Never used Tobacco Smoked in Last 30 Days: No Use of substances other than those prescribed or required for medical reasons: No Advance Directives: No Advance Directives Information Provided: Yes Nutrition Risks: Poor intake 0-25% >4 days Meds Allergies Allergy/AdvReac Type Severity Reaction Status Date / Time SEASONAL ALLERGIES Allergy Mild ITCHING Uncoded 01/31/25 21:10 Active Medications: Current Medications Benzonatate (Benzonatate 100 Mg Capsule) 100 mg PO TID PRN PRN Reason: Cough Calcium Carbonate (Calcium Carbonate 750 Mg Tab.Chew) 750 mg PO Q4H PRN PRN Reason: Heartburn Ceftriaxone Sodium (Ceftriaxone Sodium 1 Gm Vial) 1 gm IVPUSH Q24H PAM Albumin Human (Kedbumin 25 %) 100 mls @ 100 mls/hr IV Q6H PAM Stop: 02/01/25 07:59 Last Admin: 02/01/25 06:40 Dose: 100 mls/hr Magnesium Hydroxide (Milk Of Magnesia 30 Ml Oral.Susp) 30 ml PO DAILY PRN PRN Reason: Constipation Melatonin (Melatonin 3 Mg Tablet) 6 mg PO BEDTIME PRN PRN Reason: Insomnia Sodium Chloride (0.9 % Sodium Chloride Flush 3 Ml Syringe) 3 ml IVFLUSH QSHIFT PAM Physical Exam 2 Vital Signs: Vital Signs: Last Vital Signs Temp 98.0 F 02/01/25 06:37 Pulse 82 02/01/25 06:37 Resp 18 02/01/25 06:37 BP 105/63 02/01/25 06:37 Pulse Ox 100 02/01/25 06:37 O2 Del Method Room Air 02/01/25 06:37 BMI result Body Mass Index 21.4 Results Labs 01/31/25 21:30 01/31/25 21:30 Labs: Short CBC 01/31/25 Range/Units 21:30 WBC 18.5 H (4.8-10.8) X10*3/uL Hgb 6.9 L* D (14.0-18.0) g/dl Hct 22.7 L D (42.0-52.0) % Plt Count 492 H D (160-400) X10*3/uL BMP 01/31/25 21:30 Sodium 131 L Potassium 4.0 Chloride 99 Carbon Dioxide 22 BUN 21 H Creatinine 0.78 Calcium 8.0 L D Liver Function 01/31/25 01/31/25 Range/Units 21:30 21:30 Total Bilirubin 14.4 H Cancelled (0.0-1.0) mg/dL AST 218 H (5-37) U/L ALT 95 H (0-40) U/L Alkaline Phosphatase 392 H (39-117) U/L Albumin 1.8 L (3.5-5.0) g/dL Urine 02/01/25 Range/Units 01:35 Urine Color Dark Yellow Urine Appearance Clear Urine pH 6.0 (5.0-9.0) Ur Specific [place] >= 1.030 H (1.005-1.025) Urine Protein Trace (Neg-Trace) mg/dL Urine Glucose (UA) Negative (Negative) mg/dL Procedures Date of Service Date of Service: 02/01/25
[2025-02-01] MEDS: cefTRIAXone sodium 1 GM VIAL IVPUSH (08:10)
[2025-02-01] MEDS: 0.9 % Sodium Chloride Flush 3 ML SYRINGE IVFLUSH ×2 (08:10→16:07)
--- NOTE | 2025-02-01 08:21 | PHA.MEDREC ---
Addendum entered by Mainor Armstrong 02/01/25 08:45: reviewed Original Note: Pharmacy Consult ? Medication Reconciliation Pharmacy has completed the medication reconciliation. Spoke with patient and he states he is not taking any medications at this time.
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
--- NOTE | 2025-02-01 08:51 | PC.NURSE ---
patient currently a&ox3, rr equal/non labored lungs diminished throughout, pt has 2+ pitting edema to feet. pt states he is non ambulatory currently due to increased weakness but used to walk independently. pt is jaundice throughout including eyes. cardiac surgeon intact nsr on monitor. pt had blood cultures x2 obtained and given iv abx per order, pt started 2nd unit PRB. call roldan within reach, plan of care ongoing.
--- NOTE | 2025-02-01 09:11 | MHC.CLN ---
NUTRITION PATIENT WITH DX MALNUTRITION. HX EXCESS ETOH CONSUMPTION, NOW WITH PANCREATIC MASS. COMPLETE NUTRITION ASSESSMENT TO BE COMPLETED UPON ADMISSION TO UNIT.
--- NOTE | 2025-02-01 11:04 | PC.NURSE ---
pts blood transfusion has ended, pt tolerated well
--- NOTE | 2025-02-01 14:10 | PM.EVENT ---
Event Note Date of Service: 02/01/25 Event Note: Evaluated and examined the patient. Chart review. Patient has been evaluated by GI and Oncology. Patient wishes to go home on hospice. Hospice team consult placed. We will add pain medication as needed. Time Spent With Patient Time: Total time managing care of this patient today ____ minutes.
--- NOTE | 2025-02-01 14:26 | MHC.CM.PN ---
Addendum entered by Oral Ross 02/01/25 15:28: HOSPICE REFERRAL PLACED TO [facility] Original Note: PT FROM HOME, LIVES ALONE RECIEVES NO SERVICES DOES NOT USE [facility] TO FILL OUT HCP BUT DOES NOT HAVE AON[facility]A PH NUMBER WITH HIM ( SON'S NAME IS BRENDA ROYAL) PCP- [facility] IMM DELIVERED DCP- HOME WITH SERVICES VS HOSPICE.
--- NOTE | 2025-02-01 16:06 | PC.NURSE ---
patient a&ox3, vss, laboratory monitor sinus karen, pt offers no complaint of pain or discomfort, call roldan within reach, plan of care ongoing
[2025-02-02] VITALS (8 sets, daily range): BP systolic 97–119; BP diastolic 60–74; PULSE 80–88; RESP 14–19; TEMP 36.1–36.9; O2SAT 94–100
[2025-02-02] MEDS: 0.9 % Sodium Chloride Flush 3 ML SYRINGE IVFLUSH ×2 (00:43→08:32)
[2025-02-02] MEDS: diphenhydrAMINE HCL 25 MG CAPSULE PO ×2 (01:23→19:34)
[2025-02-02] MEDS: Calcium Carbonate 750 MG TAB.CHEW PO (03:20)
[2025-02-02] MEDS: cefTRIAXone sodium 1 GM VIAL IVPUSH (05:40)
[2025-02-02 06:42] LABS: MANUAL DIFF FLAG NO
[2025-02-02 06:52] LABS: Basophils Percent Auto 0.1 % (0-2); Eosinophils Absolute Auto 0.1 X10*3/uL (0.0-0.4); Eosinophils Percent Auto 0.4 % (0-4); Hematocrit 27.8 % (42.0-52.0); Hemoglobin 8.6 g/dl (14.0-18.0); Imm Gran Abs Auto 0.08 X10*3/uL (0.00-0.03); Imm Gran Pct Auto 0.6 % (0.0-0.4); Lymphocytes Absolute Auto 1.1 X10*3/uL (1.2-4.9); Lymphocytes Percent Auto 7.7 % (20-40); Mean Corpuscular HGB Conc 30.9 g/dl (31.0-36.0); Mean Corpuscular Hemoglobin 23.8 pg (27.0-33.0); Mean Platelet Volume 9.1 fL (9.4-12.4); Monocytes Absolute Auto 0.9 X10*3/uL (0.1-1.2); Monocytes Percent Auto 6.3 % (2-11); Neutrophils Percent Auto 84.9 % (45-73); Platelet Count 289 X10*3/uL (160-400); Red Blood Count 3.61 X10*6/uL (4.60-5.80); Red Cell Distribution Width 18.1 % (11.0-16.0); White Blood Count 14.1 X10*3/uL (4.8-10.8)
[2025-02-02 07:21] LABS: Anion Gap 14 (12-20); Blood Urea Nitrogen 18 mg/dL (9-16); Calcium 8.2 mg/dL (8.4-10.2); Carbon Dioxide 22 mmol/L (22-29); Chloride 98 mmol/L (96-108); Creatinine Clr Calc Pharmacy 85.4; Estimated Glomerular Filt Rate > 60; Glucose Random 101 mg/dL (60-115); Potassium 3.2 mmol/L (3.3-5.1); Sodium 131 mmol/L (135-145)
[2025-02-02] MEDS: Potassium Chloride ER 20 MEQ TAB.ER.PRT 40 MEQ PO (08:26)
[2025-02-02] MEDS: Benzonatate 100 MG CAPSULE PO (08:26)
--- NOTE | 2025-02-02 11:50 | HO.PM.IMPN ---
Subjective Subjective Date of Service: 02/02/25 Review of Systems Follow up probable metastatic cancer Physical Exam Vital Signs: Vital Signs: Last Vital Signs Temp 98.3 F 02/02/25 07:11 Pulse 80 02/02/25 07:11 Resp 19 02/02/25 07:11 BP 110/66 02/02/25 07:11 Pulse Ox 94 02/02/25 07:11 O2 Del Method Room Air 02/02/25 07:11 BMI result Body Mass Index 20.9 Objective Data Active Medications Benzonatate (Benzonatate 100 Mg Capsule) 100 mg PO TID PRN PRN Reason: Cough Last Admin: 02/02/25 08:26 Dose: 100 mg Documented By: KADE Calcium Carbonate (Calcium Carbonate 750 Mg Tab.Chew) 750 mg PO Q4H PRN PRN Reason: Heartburn Last Admin: 02/02/25 03:20 Dose: 750 mg Documented By: CELESTE Ceftriaxone Sodium (Ceftriaxone Sodium 1 Gm Vial) 1 gm IVPUSH Q24H [facility] Last Admin: 02/02/25 05:40 Dose: 1 gm Documented By: CELESTE Diphenhydramine HCl (Diphenhydramine Hcl 25 Mg Capsule) 25 mg PO Q6H PRN PRN Reason: Itching Last Admin: 02/02/25 01:23 Dose: 25 mg Documented By: CELESTE Hydromorphone HCl (Hydromorphone Hcl 0.5 Mg/0.5 Ml Syringe) 0.25 mg IVPUSH Q4H PRN; Protocol PRN Reason: Pain, Severe (Pain Scale 7-10) Magnesium Hydroxide (Milk Of Magnesia 30 Ml Oral.Susp) 30 ml PO DAILY PRN PRN Reason: Constipation Melatonin (Melatonin 3 Mg Tablet) 6 mg PO BEDTIME PRN PRN Reason: Insomnia Oxycodone HCl (Oxycodone Hcl Immed Release 5 Mg Tablet) 5 mg PO Q4H PRN PRN Reason: Pain, Moderate(Pain Scale 4-6) Sodium Chloride (0.9 % Sodium Chloride Flush 3 Ml Syringe) 3 ml IVFLUSH QSHIFT [facility] Last Admin: 02/02/25 08:32 Dose: 3 ml Documented By: KADE Labs 02/02/25 06:04 02/02/25 06:04 Labs: Laboratory Results - last 24 hr 02/02/25 06:04 MCV 77.0 L MCH 23.8 L MCHC 30.9 L RDW 18.1 H Plt Count 289 D MPV 9.1 L Immature Gran % (Auto) 0.6 H Neut % (Auto) 84.9 H Lymph % (Auto) 7.7 L [place] % (Auto) 6.3 Eos % (Auto) 0.4 Baso % (Auto) 0.1 Lymph # (Auto) 1.1 L [place] # (Auto) 0.9 Eos # (Auto) 0.1 Baso # (Auto) 0.0 Abs Immat Gran (auto) 0.08 H Absolute Neuts (auto) 12.0 H Absolute Nucleated RBC 0.000 Nucleated RBC % (auto) 0.0 Anion Gap 14 Estim Creat Clear Calc 85.4 Estimated GFR > 60 Random Glucose 101 Calcium 8.2 L Microbiology Microbiology Results: Microbiology 02/01/25 08:09 Blood Culture - Preliminary Blood - Venous No growth after 24 hours. 02/01/25 08:09 Blood Culture - Preliminary Blood - Venous No growth after 24 hours. Assessment and Plan (1) Pancreatic mass: Status: Acute Plan 74-year-old male with a past medical history of alcohol use disorder presented to the hospital today with a chief complaint of generalized weakness. Acute blood loss anemia Secondary to occult GI blood loss. Stool guaiac positive Hemoglobin on presentation was 6.9 Patient being transfused 2 units of PRBC clears GI consult IV fluids Pancreatic neoplasm Gallbladder mass Liver metastasis Colonic wall thickening Transaminitis Elevated T bili Per CT scan concerning for possible primary pancreatic neoplasm. obtain AFP, CEA levels Hematology oncology following, poor prognosis, hospice referral Ascites Concerning for possible malignant ascites. IR for diagnostic and therapeutic paracentesis. Ceftriaxone given empirically Adult failure to thrive Protein calorie malnutrition Nutrition consult Alcohol use disorder Patient has stopped drinking about 3 weeks ago. No signs of withdrawal currently. DVT prophylaxis: SCD boots Code status: Full code Quality Stroke Does the patient have a stroke diagnosis?: No VTE Prior VTE?: No VTE Risk Level:: Medical - moderate - high VTE Device Contraindication: N/A - Device Ordered VTE Drug Contraindication: Treatment Not Indicated
--- NOTE | 2025-02-02 13:45 | MHC.CM.PN ---
Hospice Informational was completed today and Patient was deemed appropriate for Hospice. Plan is still TBD (Patient would like to go home with Hospice but he has no Caregiver VS SNF with Hospice but no payer for Room & Board VS GIP). Hospice Rep indicated that she will speak with her Chief [employer] on 02/04/2025 to determine the best plan.CM will follow. 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
[2025-02-03] MEDS: 0.9 % Sodium Chloride Flush 3 ML SYRINGE IVFLUSH ×4 (00:21→20:30)
[2025-02-03] MEDS: diphenhydrAMINE HCL 25 MG CAPSULE PO ×2 (03:03→20:27)
[2025-02-03 03:28] VITALS: BP 112/59; PULSE 87; RESP 16; TEMP 36.8; O2SAT 100
[2025-02-03] MEDS: cefTRIAXone sodium 1 GM VIAL IVPUSH (06:54)
[2025-02-03 07:31] VITALS: BP 97/68; PULSE 85; RESP 20; TEMP 36.7; O2SAT 100
[2025-02-03 09:02] LABS: Anion Gap 11 (12-20); Blood Urea Nitrogen 14 mg/dL (9-16); Calcium 7.9 mg/dL (8.4-10.2); Carbon Dioxide 23 mmol/L (22-29); Chloride 99 mmol/L (96-108); Creatinine Clr Calc Pharmacy 86.8; Estimated Glomerular Filt Rate > 60; Glucose Random 85 mg/dL (60-115); Potassium 3.7 mmol/L (3.3-5.1); Sodium 129 mmol/L (135-145)
[2025-02-03] MEDS: Calcium Carbonate 750 MG TAB.CHEW PO (09:48)
--- NOTE | 2025-02-03 10:49 | HO.PM.IMPN ---
Subjective Subjective Date of Service: 02/03/25 Review of Systems Follow up probable metastatic cancer Physical Exam Vital Signs: Vital Signs: Last Vital Signs Temp 98.1 F 02/03/25 07:31 Pulse 85 02/03/25 07:31 Resp 20 02/03/25 07:31 BP 97/68 02/03/25 07:31 Pulse Ox 100 02/03/25 07:31 O2 Del Method Room Air 02/03/25 07:31 BMI result Body Mass Index 20.9 Appearing in no acute distress, jaundice lung sounds are clear to auscultation heart regular rate rhythm, clear S1, S2 positive bowel sounds, abdomen is soft, nontender neuro patient is alert x3, no focal deficits Objective Data Active Medications Benzonatate (Benzonatate 100 Mg Capsule) 100 mg PO TID PRN PRN Reason: Cough Last Admin: 02/02/25 08:26 Dose: 100 mg Documented By: KADE Calcium Carbonate (Calcium Carbonate 750 Mg Tab.Chew) 750 mg PO Q4H PRN PRN Reason: Heartburn Last Admin: 02/03/25 09:48 Dose: 750 mg Documented By: KADE Ceftriaxone Sodium (Ceftriaxone Sodium 1 Gm Vial) 1 gm IVPUSH Q24H [facility] Last Admin: 02/03/25 06:54 Dose: 1 gm Documented By: CARLOS Diphenhydramine HCl (Diphenhydramine Hcl 25 Mg Capsule) 25 mg PO Q6H PRN PRN Reason: Itching Last Admin: 02/03/25 03:03 Dose: 25 mg Documented By: CARLOS Hydromorphone HCl (Hydromorphone Hcl 0.5 Mg/0.5 Ml Syringe) 0.25 mg IVPUSH Q4H PRN; Protocol PRN Reason: Pain, Severe (Pain Scale 7-10) Magnesium Hydroxide (Milk Of Magnesia 30 Ml Oral.Susp) 30 ml PO DAILY PRN PRN Reason: Constipation Melatonin (Melatonin 3 Mg Tablet) 6 mg PO BEDTIME PRN PRN Reason: Insomnia Oxycodone HCl (Oxycodone Hcl Immed Release 5 Mg Tablet) 5 mg PO Q4H PRN PRN Reason: Pain, Moderate(Pain Scale 4-6) Sodium Chloride (0.9 % Sodium Chloride Flush 3 Ml Syringe) [facility] Last Admin: 02/03/25 09:49 Dose: 3 ml Documented By: KADE Labs 02/02/25 06:04 02/03/25 08:40 Labs: Laboratory Results - last 24 hr 02/03/25 08:40 Hold Purple Top SEE NOTE Anion Gap 11 L Estim Creat Clear Calc 86.8 Estimated GFR > 60 Random Glucose 85 Calcium 7.9 L Microbiology Microbiology Results: Microbiology 02/01/25 08:09 Blood Culture - Preliminary Blood - Venous No growth after 48 hours. 02/01/25 08:09 Blood Culture - Preliminary Blood - Venous No growth after 48 hours. Assessment and Plan (1) Pancreatic mass: Status: Acute Plan 74-year-old male with a past medical history of alcohol use disorder presented to the hospital today with a chief complaint of generalized weakness. Acute blood loss anemia Secondary to occult GI blood loss. Stool guaiac positive Hemoglobin on presentation was 6.9 s/p 2 units of PRBC regular diet GI consult s/p IV fluids Pancreatic neoplasm Gallbladder mass Liver metastasis Colonic wall thickening Transaminitis Elevated T bili Per CT scan concerning for possible primary pancreatic neoplasm. obtain AFP, CEA levels Hematology oncology following, poor prognosis, hospice referral Ascites Concerning for possible malignant ascites. IR for diagnostic and therapeutic paracentesis. Ceftriaxone empirically Adult failure to thrive Protein calorie malnutrition Nutrition consult Alcohol use disorder Patient has stopped drinking about 3 weeks ago prior to admission. No signs of withdrawal currently. DVT prophylaxis: SCD boots Code status: Full code Quality Stroke Does the patient have a stroke diagnosis?: No VTE Prior VTE?: No VTE Risk Level:: Medical - moderate - high VTE Device Contraindication: N/A - Device Ordered VTE Drug Contraindication: Treatment Not Indicated
[2025-02-03 12:00] VITALS: BP 98/72; PULSE 97; RESP 20; TEMP 36.7; O2SAT 99
--- NOTE | 2025-02-03 13:56 | MHC.CM.PN ---
RN DIABETES EDUCATOR/Dania met with Son and Daughter today; they have confirmed that they are not able to provide care (Son lives in [place] and Daughter is an hour away).CM awaits further word from [facility] as to the best plan.CM will follow.
[2025-02-03 15:07] VITALS: BP 101/62; PULSE 98; RESP 18; TEMP 37.3; O2SAT 99
[2025-02-03 19:08] VITALS: BP 107/64; PULSE 95; RESP 18; TEMP 36.8; O2SAT 100
[2025-02-03 23:55] VITALS: BP 96/65; PULSE 92; RESP 19; TEMP 36.7; O2SAT 100
[2025-02-04] VITALS (8 sets, daily range): BP systolic 93–104; BP diastolic 57–67; PULSE 83–94; RESP 17–19; TEMP 36.6–37.2; O2SAT 97–100; BMI 20.9
[2025-02-04] MEDS: diphenhydrAMINE HCL 25 MG CAPSULE PO ×3 (04:29→18:38)
[2025-02-04] MEDS: Calcium Carbonate 750 MG TAB.CHEW PO (04:35)
[2025-02-04] MEDS: cefTRIAXone sodium 1 GM VIAL IVPUSH (06:23)
[2025-02-04 06:50] LABS: Hematocrit 26.5 % (42.0-52.0); Hemoglobin 8.2 g/dl (14.0-18.0); Mean Corpuscular HGB Conc 30.9 g/dl (31.0-36.0); Mean Corpuscular Hemoglobin 23.8 pg (27.0-33.0); Mean Platelet Volume 9.3 fL (9.4-12.4); Platelet Count 242 X10*3/uL (160-400); Red Blood Count 3.44 X10*6/uL (4.60-5.80); Red Cell Distribution Width 18.7 % (11.0-16.0); White Blood Count 15.7 X10*3/uL (4.8-10.8)
[2025-02-04 07:05] LABS: Anion Gap 11 (12-20); Blood Urea Nitrogen 18 mg/dL (9-16); Carbon Dioxide 24 mmol/L (22-29); Chloride 99 mmol/L (96-108); Creatinine Clr Calc Pharmacy 75.9; Estimated Glomerular Filt Rate > 60; Glucose Random 94 mg/dL (60-115); Potassium 3.9 mmol/L (3.3-5.1); Sodium 130 mmol/L (135-145)
[2025-02-04 07:07] LABS: Alanine Aminotransferase 79 U/L (0-40); Albumin Level 1.8 g/dL (3.5-5.0); Alkaline Phosphatase 335 U/L (39-117); Aspartate Amino Transferase 179 U/L (5-37); Bilirubin Direct 11.1 mg/dL (0.0-0.5); Bilirubin Total 15.8 mg/dL (0.0-1.0); Total Protein 5.2 g/dL (6.5-8.0)
--- NOTE | 2025-02-04 08:33 | MHC.CM.PN ---
Addendum entered by Marlyn Paul 02/04/25 13:16: [facility] HAS INITIATED CONTACT WITH PT/FAMILY TO GET [facility] [place] IS REVIEWING TO DETERMINE IF THEY CAN SKILL PT PT AWAITING SNF PLACEMENT WITH HOSPICE Original Note: PT AWAITING SNF PLACEMENT WITH HOSPICE CARE. CM WILL CONTACT [facility] TO DETERMINE IF A [facility] HAS BEEN INITIATED REFERRAL PLACED TO SNFS
[2025-02-04] MEDS: 0.9 % Sodium Chloride Flush 3 ML SYRINGE IVFLUSH (08:41)
[2025-02-04] MEDS: Albumin Human 25 % 100 ML IV ×2 (08:41→12:52)
--- NOTE | 2025-02-04 11:06 | HO.PM.IMPN ---
Subjective Subjective Date of Service: 02/04/25 Review of Systems Follow up probable metastatic cancer feeling, no nvd paracentesis today Physical Exam Vital Signs: Vital Signs: Last Vital Signs Temp 98.9 F 02/04/25 07:02 Pulse 92 02/04/25 11:03 Resp 18 02/04/25 11:03 BP 101/65 02/04/25 11:03 Pulse Ox 99 02/04/25 11:03 O2 Del Method Room Air 02/04/25 11:03 BMI result Body Mass Index 20.9 Appearing in no acute distress, jaundice lung sounds are clear to auscultation heart regular rate rhythm, clear S1, S2 positive bowel sounds, abdomen is soft, nontender neuro patient is alert x3, no focal deficits Objective Data Active Medications Benzonatate (Benzonatate 100 Mg Capsule) 100 mg PO TID PRN PRN Reason: Cough Last Admin: 02/02/25 08:26 Dose: 100 mg Documented By: KADE Calcium Carbonate (Calcium Carbonate 750 Mg Tab.Chew) 750 mg PO Q4H PRN PRN Reason: Heartburn Last Admin: 02/04/25 04:35 Dose: 750 mg Documented By: MAXIMO Ceftriaxone Sodium (Ceftriaxone Sodium 1 Gm Vial) 1 gm IVPUSH Q24H [facility] Last Admin: 02/04/25 06:23 Dose: 1 gm Documented By: MAXIMO Diphenhydramine HCl (Diphenhydramine Hcl 25 Mg Capsule) 25 mg PO Q6H PRN PRN Reason: Itching Last Admin: 02/04/25 04:29 Dose: 25 mg Documented By: MAXIMO Hydromorphone HCl (Hydromorphone Hcl 0.5 Mg/0.5 Ml Syringe) 0.25 mg IVPUSH Q4H PRN; Protocol PRN Reason: Pain, Severe (Pain Scale 7-10) Albumin Human (Kedbumin 25 %) 100 mls @ 100 mls/hr IV Q6H [facility] Stop: 02/04/25 14:29 Last Infusion: 02/04/25 09:51 Dose: Infused Documented By: KADE Magnesium Hydroxide (Milk Of Magnesia 30 Ml Oral.Susp) 30 ml PO DAILY PRN PRN Reason: Constipation Melatonin (Melatonin 3 Mg Tablet) 6 mg PO BEDTIME PRN PRN Reason: Insomnia Oxycodone HCl (Oxycodone Hcl Immed Release 5 Mg Tablet) 5 mg PO Q4H PRN PRN Reason: Pain, Moderate(Pain Scale 4-6) Sodium Chloride (0.9 % Sodium Chloride Flush 3 Ml Syringe) 3 ml IVFLUSH QSHIFT [facility] Last Admin: 02/04/25 08:41 Dose: 3 ml Documented By: CYNDI Labs 02/04/25 06:22 02/04/25 06:22 Labs: Laboratory Results - last 24 hr 02/04/25 06:22 MCV 77.0 L MCH 23.8 L MCHC 30.9 L RDW 18.7 H Plt Count 242 MPV 9.3 L Absolute Nucleated RBC 0.000 Nucleated RBC % (auto) 0.0 Anion Gap 11 L Estim Creat Clear Calc 75.9 Estimated GFR > 60 Random Glucose 94 Calcium 8.0 L Total Bilirubin 15.8 H Direct Bilirubin 11.1 H AST 179 H ALT 79 H Alkaline Phosphatase 335 H Total Protein 5.2 L Albumin 1.8 L Microbiology Microbiology Results: Microbiology 02/01/25 08:09 Blood Culture - Preliminary Blood - Venous No growth after 48 hours. 02/01/25 08:09 Blood Culture - Preliminary Blood - Venous No growth after 48 hours. Assessment and Plan (1) Pancreatic mass: Status: Acute Plan 74-year-old male with a past medical history of alcohol use disorder presented to the hospital today with a chief complaint of generalized weakness. Ascites Concerning for possible malignant ascites. IR for diagnostic and therapeutic paracentesis. Ceftriaxone empirically Pancreatic neoplasm Gallbladder mass Liver metastasis Colonic wall thickening Transaminitis Elevated T bili Per CT scan concerning for possible primary pancreatic neoplasm. obtain AFP, CEA levels Hematology oncology following, poor prognosis, hospice referral Acute blood loss anemia> resolved Secondary to occult GI blood loss. Stool guaiac positive Hemoglobin on presentation was 6.9 s/p 2 units of PRBC regular diet GI consult s/p IV fluids Adult failure to thrive Protein calorie malnutrition Nutrition consult Alcohol use disorder Patient has stopped drinking about 3 weeks ago prior to admission. No signs of withdrawal currently. DVT prophylaxis: SCD boots Code status: Full code Quality Stroke Does the patient have a stroke diagnosis?: No VTE Prior VTE?: No VTE Risk Level:: Medical - moderate - high VTE Device Contraindication: N/A - Device Ordered VTE Drug Contraindication: Treatment Not Indicated
[2025-02-04] MEDS: Lidocaine HCl 1 % MPF 30 ML VIAL SUBCUT (12:01)
[2025-02-04 12:03] LABS: MN% 86.3 %; PMN% 13.7 %; RBC Peritoneal Fluid < 0.002 X10*6/uL; WBC Peritoneal Fluid 0.105 X10*3/uL
--- NOTE | 2025-02-04 12:24 | MHC.CLN ---
PT IS MODERATELY MALNOURISHED PT WITH MILDLY DEPLETED SUBCUTANEOUS FAT AND MUSCLE MASS WITH 19% NON SIGNIFICANT WT LOSS X 2 YEARS WITH PROBABLE CA DX WITH METS AND SEVERE ETOH ABUSE WITH CHRONIC POOR PO INTAKE REGULAR DIET PT RECEIVING ENSURE TID TO PROVIDE 1050KCALS, 60G PROTEIN MONITOR PO INTAKE AND ENCOURAGE SUPPLEMENTS PT WANTS TO DISCHARGE ON HOSPICE SERVICES SEE ALSO FULL CLINICAL NUTRITION ASSESSMENT
[2025-02-04 13:24] LABS: BF Shift QC OK YES; Lymphocyte Peritoneal Fl 13 %; Monocytes Peritoneal Fl 17 %; Neutrophils Peritoneal Fluid 5 %; Other Peritioneal Fl 65 %
[2025-02-05 03:23] VITALS: BP 101/54; PULSE 80; RESP 18; TEMP 36.2; O2SAT 93
[2025-02-05] MEDS: diphenhydrAMINE HCL 25 MG CAPSULE PO ×2 (03:29→21:54)
[2025-02-05] MEDS: cefTRIAXone sodium 1 GM VIAL IVPUSH (05:48)
[2025-02-05 07:12] VITALS: BP 97/63; PULSE 87; RESP 16; TEMP 36.6; O2SAT 98
[2025-02-05] MEDS: Calcium Carbonate 750 MG TAB.CHEW PO (09:23)
[2025-02-05] MEDS: oxyCODONE HCl Immed Release 5 MG TABLET PO (09:23)
[2025-02-05] MEDS: 0.9 % Sodium Chloride Flush 3 ML SYRINGE IVFLUSH ×2 (09:24→21:59)
--- NOTE | 2025-02-05 10:26 | HO.PM.IMPN ---
Subjective Subjective Date of Service: 02/05/25 Review of Systems Follow up probable metastatic cancer feeling, no nvd s/p paracentesis Physical Exam Vital Signs: Vital Signs: Last Vital Signs Temp 97.8 F 02/05/25 07:12 Pulse 87 02/05/25 07:12 Resp 16 02/05/25 07:12 BP 97/63 02/05/25 07:12 Pulse Ox 98 02/05/25 07:12 O2 Del Method Room Air 02/05/25 07:12 BMI result Body Mass Index 20.9 Appearing in no acute distress, jaundice lung sounds are clear to auscultation heart regular rate rhythm, clear S1, S2 positive bowel sounds, abdomen is soft, nontender neuro patient is alert x3, no focal deficits Objective Data Active Medications Benzonatate (Benzonatate 100 Mg Capsule) 100 mg PO TID PRN PRN Reason: Cough Last Admin: 02/02/25 08:26 Dose: 100 mg Documented By: KADE Calcium Carbonate (Calcium Carbonate 750 Mg Tab.Chew) 750 mg PO Q4H PRN PRN Reason: Heartburn Last Admin: 02/05/25 09:23 Dose: 750 mg Documented By: ISIDORO Ceftriaxone Sodium (Ceftriaxone Sodium 1 Gm Vial) 1 gm IVPUSH Q24H PAM Last Admin: 02/05/25 05:48 Dose: 1 gm Documented By: CAILIN Diphenhydramine HCl (Diphenhydramine Hcl 25 Mg Capsule) 25 mg PO Q6H PRN PRN Reason: Itching Last Admin: 02/05/25 03:29 Dose: 25 mg Documented By: CAILIN Hydromorphone HCl (Hydromorphone Hcl 0.5 Mg/0.5 Ml Syringe) 0.25 mg IVPUSH Q4H PRN; Protocol PRN Reason: Pain, Severe (Pain Scale 7-10) Magnesium Hydroxide (Milk Of Magnesia 30 Ml Oral.Susp) 30 ml PO DAILY PRN PRN Reason: Constipation Melatonin (Melatonin 3 Mg Tablet) 6 mg PO BEDTIME PRN PRN Reason: Insomnia Oxycodone HCl (Oxycodone Hcl Immed Release 5 Mg Tablet) 5 mg PO Q4H PRN PRN Reason: Pain, Moderate(Pain Scale 4-6) Last Admin: 04/01/25 09:23 Dose: 5 mg Documented By: ISIDORO Sodium Chloride (0.9 % Sodium Chloride Flush 3 Ml Syringe) 3 ml IVFLUSH QSHIFT COUNTS INCLUDE 234 BEDS AT THE [facility] Last Admin: 02/05/25 09:24 Dose: 3 ml Documented By: ISIDORO Labs 02/04/25 06:22 02/04/25 06:22 Labs: Laboratory Results - last 24 hr 02/01/25 02/04/25 08:09 11:30 Alpha Fetoprotein 1.0 Peritoneal WBC 0.105 Peritoneal RBC < 0.002 Periton Neutrophils 5 Periton Lymphocytes 13 Peritoneal Monocytes 17 Peritoneal Other Cells 65 Microbiology Microbiology Results: Microbiology 02/04/25 11:30 Gram Stain - Final Abdomen - Peritoneal Routine Culture - Preliminary No growth to date. Anaerobic Culture - Preliminary No growth to date. Assessment and Plan (1) Pancreatic mass: Status: Acute Plan 74-year-old male with a past medical history of alcohol use disorder presented to the hospital today with a chief complaint of generalized weakness. Ascites Concerning for possible malignant ascites. s/p paracentesis -3.3L removed sent for path, so far cx neg stop Ceftriaxone Pancreatic neoplasm Gallbladder mass Liver metastasis Colonic wall thickening Transaminitis Elevated T bili Per CT scan concerning for possible primary pancreatic neoplasm. obtain AFP, CEA levels Hematology oncology following, poor prognosis, hospice referral Acute blood loss anemia> resolved Secondary to occult GI blood loss. Stool guaiac positive Hemoglobin on presentation was 6.9 s/p 2 units of PRBC regular diet s/p IV fluids Adult failure to thrive Protein calorie malnutrition ensure added to diet Alcohol use disorder Patient has stopped drinking about 3 weeks ago prior to admission. No signs of withdrawal currently. DVT prophylaxis: SCD boots Code status: Full code Quality Stroke Does the patient have a stroke diagnosis?: No VTE Prior VTE?: No VTE Risk Level:: Medical - moderate - high VTE Device Contraindication: N/A - Device Ordered VTE Drug Contraindication: Treatment Not Indicated
[2025-02-05 11:45] VITALS: BP 98/64; PULSE 89; RESP 18; TEMP 36.8; O2SAT 97
--- NOTE | 2025-02-05 14:46 | MHC.CM.PN ---
Addendum entered by Alecia Justice 02/05/25 14:54: CM has reached out to [facility], via Email, for a status update on the [employer]oks; CM will follow. Original Note: Per [facility], Patient does not meet the criteria for GIP and he does not have the 24/ care he would need to go home with Hospice. CM referred to [facility] yesterday and goal will be for Hospice in a SNF, once [employer] is in place to cover R&B. CM will follow.
[2025-02-05 15:09] VITALS: BP 98/61; PULSE 88; RESP 16; TEMP 36.4; O2SAT 99
[2025-02-05 19:38] VITALS: BP 113/74; PULSE 95; RESP 16; TEMP 37.2; O2SAT 100
[2025-02-05 23:59] VITALS: BP 102/59; PULSE 96; RESP 16; TEMP 36.7; O2SAT 98
[2025-02-06 03:45] VITALS: BP 98/63; PULSE 87; RESP 18; TEMP 36.6; O2SAT 99
[2025-02-06 07:11] VITALS: BP 100/62; PULSE 79; RESP 20; TEMP 36.7; O2SAT 96
[2025-02-06] MEDS: diphenhydrAMINE HCL 25 MG CAPSULE PO (08:16)
[2025-02-06] MEDS: 0.9 % Sodium Chloride Flush 3 ML SYRINGE IVFLUSH ×3 (08:17→20:05)
--- NOTE | 2025-02-06 10:31 | MHC.CM.PN ---
Per [facility]OUNDS discussion, Patient's oldest Son, from [place], may be able to be a home Caregiver; CM will continue to communicate with [facility] on status of [employer] brooks, in case SNF with hospice is needed.
--- NOTE | 2025-02-06 10:37 | P.CDIM_ITS ---
PROVIDER RESPONSE TEXT: To clarify, the appropriate diagnosis supported by the clinical indicators: Moderate QUERY TEXT: PHYSICIAN'S DOCUMENTATION REQUEST Date of Query: 02/04/2025 08:30 AM EDT Patient Name: Nickolas Galdamez Admit Date: 02/01/2025 Dear Dania Sahu FACETOR, A review of the medical record indicates additional documentation may be needed. Please review below and update the documentation accordingly. Documentation includes the diagnosis of malnutrition. Clinical indicators: Progress note within the written Plan 02/03/25 - Protein calorie malnutrition Failure to thrive, weakness, mentions his appetite is almost zero. If possible, please provide additional specificity regarding the severity of the malnutrition using t he above information: Mild Moderate Severe Other (explain) Clinically unable to determine (explain) Thank you, Sheron Lynn, CCS, CDIS Use of terms such as suspected, likely, concern for, or probable (associated with a specific diagnosi s that is being evaluated, monitored, or treated as if it exists) are acceptable and can be coded in the inpatient se tting, when documented at the time of discharge. Please use your independent medical judgment in providing your response. THIS QUERY IS PART OF THE PERMANENT MEDICAL RECORD
--- NOTE | 2025-02-06 10:37 | P.CDIM_ITS ---
PROVIDER RESPONSE TEXT: To clarify, the appropriate diagnosis supported by the clinical indicators: Hyponatremia: diagnosed QUERY TEXT: PHYSICIAN'S DOCUMENTATION REQUEST Date of Query: 02/04/2025 12:02 PM EDT Patient Name: Nickolas Galdamez Admit Date: 02/01/2025 Dear Dania Sahu SENIOR SOFTWARE TESTER, A review of the medical record indicates additional documentation may be needed. Please review below and update the documentation accordingly. Clinical Indicators: LABS: sodium 131 L 129 L 130 L Fluids Based on the above, could you clarify if there is a diagnosis that correlates with these lab findings : Hyponatremia resolved, possible, probable etc. Labs indicate a diagnosis of (please specify) Other (explain) Clinically unable to determine (explain) Thank you, Sheron Lynn, CCS, CDIS Use of terms such as suspected, likely, concern for, or probable (associated with a specific diagnosi s that is being evaluated, monitored, or treated as if it exists) are acceptable and can be coded in the inpatient se tting, when documented at the time of discharge. Please use your independent medical judgment in providing your response. THIS QUERY IS PART OF THE PERMANENT MEDICAL RECORD
--- NOTE | 2025-02-06 11:48 | MHC.CLN ---
F/U PT IS MODERATELY MALNOURISHED SEE FULL CLINICAL NUTRITION ASSESSMENT DATED 02/04/25 PO INTAKE VARIABLE RANGING FROM 25-100% REGULAR DIET PT RECEIVING ENSURE TID TO PROVIDE 1050KCALS, 60G PROTEIN MONITOR PO INTAKE AND ENCOURAGE SUPPLEMENTS
--- NOTE | 2025-02-06 12:32 | P.PNIM_ITS ---
Subjective Subjective Date of Service: 02/06/25 Review of Systems Follow up probable metastatic cancer feeling, no nvd s/p paracentesis Physical Exam 2 Vital Signs: Vital Signs: Last Vital Signs Temp 98.1 F 02/06/25 07:11 Pulse 79 02/06/25 07:11 Resp 20 02/06/25 07:11 BP 100/62 02/06/25 07:11 Pulse Ox 96 02/06/25 07:11 O2 Del Method Room Air 02/06/25 07:11 BMI result Body Mass Index 20.9 Appearing in no acute distress, jaundice lung sounds are clear to auscultation heart regular rate rhythm, clear S1, S2 positive bowel sounds, abdomen is soft, nontender neuro patient is alert x3, no focal deficits Objective Data Active Medications Benzonatate (Benzonatate 100 Mg Capsule) 100 mg PO TID PRN PRN Reason: Cough Last Admin: 02/02/25 08:26 Dose: 100 mg Documented By: KADE Calcium Carbonate (Calcium Carbonate 750 Mg Tab.Chew) 750 mg PO Q4H PRN PRN Reason: Heartburn Last Admin: 02/05/25 09:23 Dose: 750 mg Documented By: ISIDORO Diphenhydramine HCl (Diphenhydramine Hcl 25 Mg Capsule) 25 mg PO Q6H PRN PRN Reason: Itching Last Admin: 02/06/25 08:16 Dose: 25 mg Documented By: LEON Hydromorphone HCl (Hydromorphone Hcl 0.5 Mg/0.5 Ml Syringe) 0.25 mg IVPUSH Q4H PRN; Protocol PRN Reason: Pain, Severe (Pain Scale 7-10) Magnesium Hydroxide (Milk Of Magnesia 30 Ml Oral.Susp) 30 ml PO DAILY PRN PRN Reason: Constipation Melatonin (Melatonin 3 Mg Tablet) 6 mg PO BEDTIME PRN PRN Reason: Insomnia Oxycodone HCl (Oxycodone Hcl Immed Release 5 Mg Tablet) 5 mg PO Q4H PRN PRN Reason: Pain, Moderate(Pain Scale 4-6) Last Admin: 02/05/25 09:23 Dose: 5 mg Documented By: ISIDORO Sodium Chloride (0.9 % Sodium Chloride Flush 3 Ml Syringe) 3 ml IVFLUSH [facility] Last Admin: 02/06/25 08:17 Dose: 3 ml Documented By: LEON Labs 02/04/25 06:22 02/04/25 06:22 Microbiology Microbiology Results: Microbiology 02/01/25 08:09 Blood Culture - Final Blood - Venous No growth after 5 days. 02/01/25 08:09 Blood Culture - Final Blood - Venous No growth after 5 days. 02/04/25 11:30 Gram Stain - Final Abdomen - Peritoneal Routine Culture - Final No growth after 2 days Anaerobic Culture - Preliminary No growth to date. Assessment and Plan (1) Pancreatic mass: Status: Acute Plan 74-year-old male with a past medical history of alcohol use disorder presented to the hospital today with a chief complaint of generalized weakness. Ascites. Resolved Concerning for possible malignant ascites. s/p paracentesis -3.3L removed sent for path, so far cx neg s/p Ceftriaxone Pancreatic neoplasm Gallbladder mass Liver metastasis Colonic wall thickening Transaminitis Elevated T bili Per CT scan concerning for possible primary pancreatic neoplasm. obtain AFP, CEA levels Hematology oncology following, poor prognosis, hospice referral Acute blood loss anemia> resolved Secondary to occult GI blood loss. Stool guaiac positive Hemoglobin on presentation was 6.9 s/p 2 units of PRBC regular diet s/p IV fluids Adult failure to thrive Protein calorie malnutrition ensure added to diet Alcohol use disorder Patient has stopped drinking about 3 weeks ago prior to admission. No signs of withdrawal currently. DISPO patient to talk to his oldest son to see if he would be able to stay with him and go home on hospice DVT prophylaxis: SCD boots Code status: DNR code Quality Stroke Does the patient have a stroke diagnosis?: No VTE Prior VTE?: No VTE Risk Level:: Medical - moderate - high VTE Device Contraindication: N/A - Device Ordered VTE Drug Contraindication: Treatment Not Indicated
[2025-02-06 13:22] VITALS: BP 107/66; PULSE 85; RESP 18; TEMP 36.4; O2SAT 99
[2025-02-06] MEDS: Calcium Carbonate 750 MG TAB.CHEW PO (15:10)
[2025-02-06 15:14] VITALS: BP 105/72; PULSE 93; RESP 18; TEMP 36.2; O2SAT 100
[2025-02-06 19:10] VITALS: BP 105/69; PULSE 89; RESP 20; TEMP 36.1; O2SAT 99
[2025-02-07] VITALS (7 sets, daily range): BP systolic 90–106; BP diastolic 57–66; PULSE 82–90; RESP 16–18; TEMP 36.5–36.9; O2SAT 98–99
[2025-02-07] MEDS: Calcium Carbonate 750 MG TAB.CHEW PO ×2 (02:33→09:21)
[2025-02-07] MEDS: 0.9 % Sodium Chloride Flush 3 ML SYRINGE IVFLUSH ×2 (09:18→19:39)
[2025-02-07] MEDS: oxyCODONE HCl Immed Release 5 MG TABLET PO (11:49)
--- NOTE | 2025-02-07 17:01 | P.PNIM_ITS ---
Subjective Subjective Date of Service: 02/07/25 Interval History: seen and examined follow up for metastatic cancer reporting some abdominal pain Review of Systems Review of Systems: Yes all other systems are reviewed and are negative Constitutional Constitutional: Denies chills and Denies fever(s) Physical Exam 2 Vital Signs: Vital Signs: Last Vital Signs Temp 98.4 F 02/07/25 16:00 Pulse 85 02/07/25 16:00 Resp 16 02/07/25 16:00 BP 103/64 02/07/25 16:00 Pulse Ox 99 02/07/25 16:00 O2 Del Method Room Air 02/07/25 16:00 BMI result Body Mass Index 20.9 Const: Other: chronically ill-appearing General: no acute distress, alert and awake Nutritional Appearance: thin Orientation/consciousness: patient oriented x3 Eyes: Other: bilateral scleral icterus GI: Palpation (GI): Soft to palpation Skin: Other: jaundice Neuro: General: patient oriented x3 Objective Data Active Medications Benzonatate (Benzonatate 100 Mg Capsule) 100 mg PO TID PRN PRN Reason: Cough Last Admin: 02/02/25 08:26 Dose: 100 mg Documented By: KADE Calcium Carbonate (Calcium Carbonate 750 Mg Tab.Chew) 750 mg PO Q4H PRN PRN Reason: Heartburn Last Admin: 02/07/25 09:21 Dose: 750 mg Documented By: ALEJANDRO Diphenhydramine HCl (Diphenhydramine Hcl 25 Mg Capsule) 25 mg PO Q6H PRN PRN Reason: Itching Last Admin: 02/06/25 08:16 Dose: 25 mg Documented By: LEON Magnesium Hydroxide (Milk Of Magnesia 30 Ml Oral.Susp) 30 ml PO DAILY PRN PRN Reason: Constipation Melatonin (Melatonin 3 Mg Tablet) 6 mg PO BEDTIME PRN PRN Reason: Insomnia Omeprazole (Omeprazole 20 Mg Capsule.Dr) 20 mg PO DAILY@0630 PAM Oxycodone HCl (Oxycodone Hcl Immed Release 5 Mg Tablet) 5 mg PO Q6H PRN PRN Reason: Pain, Moderate(Pain Scale 4-6) Last Admin: 02/07/25 11:49 Dose: 5 mg Documented By: ALEJANDRO Sodium Chloride (0.9 % Sodium Chloride Flush 3 Ml Syringe) 3 ml IVFLUSH QSHIFT PAM Last Admin: 02/07/25 15:35 Dose: Not Given Documented By: ALEJANDRO Non-Admin Reason: Previously Administered Labs 02/04/25 06:22 02/04/25 06:22 Microbiology Microbiology Results: Microbiology 02/04/25 11:30 Gram Stain - Final Abdomen - Peritoneal Routine Culture - Final No growth after 2 days Anaerobic Culture - Preliminary No growth to date. Assessment and Plan (1) Pancreatic mass: Status: Acute (2) Anemia: Status: Acute Plan 74-year-old male with a past medical history of alcohol use disorder who presented to the hospital with a chief complaint of generalized weakness and yellow skin Ascites. Resolved Concerning for possible malignant ascites. s/p paracentesis -3.3L removed sent for path-negative for malignant cells, so far cx neg s/p Ceftriaxone Pancreatic neoplasm/Gallbladder mass/Liver metastasis Transaminitis Elevated T bili CEA levels high Per CT scan concerning for possible primary pancreatic neoplasm seen by oncology following- pt has deferred any intervention; poor prognosis, hospice referral Acute blood loss anemia Secondary to occult GI blood loss. Stool guaiac positive s/p 2 units of PRBC Adult failure to thrive Protein calorie malnutrition ensure added to diet Alcohol use disorder Patient has stopped drinking about 3 weeks ago prior to admission. No signs of withdrawal DISPO patient to talk to his oldest son to see if he would be able to stay with him and go home on hospice - TBD DVT prophylaxis: SCD boots Code status: DNR Quality Stroke Does the patient have a stroke diagnosis?: No VTE Prior VTE?: No VTE Risk Level:: Medical - moderate - high VTE Device Contraindication: N/A - Device Ordered VTE Drug Contraindication: Treatment Not Indicated
--- NOTE | 2025-02-07 18:44 | PC.NURSE ---
Patient alert and oriented, vss, RA sats at 99%. Patient refused to get out of bed to the chair today, stayed most of the shift in bed sleeping. Compliant with meals and medication. Patient requested pain medication c/o pain to epigastric region, provider notified, pain medication ordered and administered.
[2025-02-08 03:17] VITALS: BP 96/63; PULSE 91; RESP 18; TEMP 36.6; O2SAT 98
[2025-02-08] MEDS: Omeprazole 20 MG CAPSULE.DR PO (05:35)
[2025-02-08 07:16] VITALS: BP 95/52; PULSE 87; RESP 18; TEMP 36; O2SAT 100
[2025-02-08] MEDS: 0.9 % Sodium Chloride Flush 3 ML SYRINGE IVFLUSH ×3 (08:40→23:13)
--- NOTE | 2025-02-08 10:36 | MHC.CM.PN ---
SPOKEE WITH OT WHO DOES NOT HAVE A PHONE NUMBER FOR HIS OLDET SON SAULO ROYAL L/M FOR B[facility] OF [facility] AND [facility] TO TRY TO GET PHONE NUMBER FOR SAULO
[2025-02-08 11:32] VITALS: BP 101/62; PULSE 91; RESP 18; TEMP 36.4; O2SAT 98
[2025-02-08] MEDS: oxyCODONE HCl Immed Release 5 MG TABLET PO (11:51)
--- NOTE | 2025-02-08 13:16 | MHC.CLN ---
F/U PT IS MODERATELY MALNOURISHED PO INTAKE POOR, REFUSED ALL MEALS YESTERDAY REGULAR DIET PT RECEIVING ENSURE TID TO PROVIDE 1050KCALS, 60G PROTEIN CONTINUE TO MONITOR PO INTAKE AND ENCOURAGE SUPPLEMENTS
--- NOTE | 2025-02-08 15:02 | MHC.CM.PN ---
CONFIRMED WITH PTS SON SAULO [phone] THAT HE WILL BE HOME BY February AT WHICH TIME PT WILL BE DCD WITH HOSPICE/HOME
[2025-02-08 15:08] VITALS: BP 115/65; PULSE 84; RESP 18; TEMP 36.1; O2SAT 100
--- NOTE | 2025-02-08 16:58 | HO.PM.IMPN ---
Subjective Subjective Date of Service: 02/08/25 Interval History: seen and examined this morning follow up for metastatic ca no overnight events Review of Systems Review of Systems: Yes all other systems are reviewed and are negative Constitutional Constitutional: Denies chills and Denies fever(s) Physical Exam Vital Signs: Vital Signs: Last Vital Signs Temp 96.9 F 02/08/25 15:08 Pulse 84 02/08/25 15:08 Resp 18 02/08/25 15:08 BP 115/65 02/08/25 15:08 Pulse Ox 100 02/08/25 15:08 O2 Del Method Room Air 02/08/25 15:08 BMI result Body Mass Index 20.9 Const: Other: chronically ill-appearing General: no acute distress, alert and awake Nutritional Appearance: thin Orientation/consciousness: patient oriented x3 Eyes: Other: bilateral scleral icterus GI: Palpation (GI): Soft to palpation Skin: Other: jaundice Neuro: General: patient oriented x3 Objective Data Active Medications Benzonatate (Benzonatate 100 Mg Capsule) 100 mg PO TID PRN PRN Reason: Cough Last Admin: 02/02/25 08:26 Dose: 100 mg Documented By: KADE Calcium Carbonate (Calcium Carbonate 750 Mg Tab.Chew) 750 mg PO Q4H PRN PRN Reason: Heartburn Last Admin: 02/07/25 09:21 Dose: 750 mg Documented By: DOBROB Diphenhydramine HCl (Diphenhydramine Hcl 25 Mg Capsule) 25 mg PO Q6H PRN PRN Reason: Itching Last Admin: 02/06/25 08:16 Dose: 25 mg Documented By: LEON Magnesium Hydroxide (Milk Of Magnesia 30 Ml Oral.Susp) 30 ml PO DAILY PRN PRN Reason: Constipation Melatonin (Melatonin 3 Mg Tablet) 6 mg PO BEDTIME PRN PRN Reason: Insomnia Omeprazole (Omeprazole 20 Mg Capsule.Dr) 20 mg PO DAILY@0630 PAM Last Admin: 02/08/25 05:35 Dose: 20 mg Documented By: ODRISM Oxycodone HCl (Oxycodone Hcl Immed Release 5 Mg Tablet) 5 mg PO Q6H PRN PRN Reason: Pain, Moderate(Pain Scale 4-6) Last Admin: 02/08/25 11:51 Dose: 5 mg Documented By: HO.RICCIAV Sodium Chloride (0.9 % Sodium Chloride Flush 3 Ml Syringe) 3 ml IVFLUSH QSHIFT [facility] Last Admin: 02/08/25 08:40 Dose: 3 ml Documented By: ANGEL Labs 02/04/25 06:22 02/04/25 06:22 Microbiology Microbiology Results: Microbiology 02/04/25 11:30 Gram Stain - Final Abdomen - Peritoneal Routine Culture - Final No growth after 2 days Anaerobic Culture - Preliminary No growth to date. Assessment and Plan (1) Pancreatic mass: Status: Acute (2) Malnutrition: Status: Acute Plan 74-year-old male with a past medical history of alcohol use disorder who presented to the hospital with a chief complaint of generalized weakness and yellow skin Ascites. s/p paracentesis -3.3L removed sent for path-negative for malignant cells, so far cx neg s/p Ceftriaxone Pancreatic neoplasm/Gallbladder mass/Liver metastasis Transaminitis Elevated T bili CEA levels high Per CT scan concerning for possible primary pancreatic neoplasm seen by oncology following- pt has deferred any intervention; poor prognosis, hospice referral. goal home with hospice Acute blood loss anemia Secondary to occult GI blood loss. Stool guaiac positive s/p 2 units of PRBC Adult failure to thrive Protein calorie malnutrition ensure added to diet Alcohol use disorder Patient has stopped drinking about 3 weeks ago prior to admission. No signs of withdrawal DISPO patient to talk to his oldest son to see if he would be able to stay with him and go home on hospice - TBD DVT prophylaxis: SCD boots Code status: DNR Quality Stroke Does the patient have a stroke diagnosis?: No VTE Prior VTE?: No VTE Risk Level:: Medical - moderate - high VTE Device Contraindication: N/A - Device Ordered VTE Drug Contraindication: Treatment Not Indicated
[2025-02-08 19:14] VITALS: BP 105/69; PULSE 90; RESP 18; TEMP 36.2; O2SAT 97
[2025-02-08] MEDS: Calcium Carbonate 750 MG TAB.CHEW PO (20:20)
[2025-02-08] MEDS: diphenhydrAMINE HCL 25 MG CAPSULE PO (20:20)
[2025-02-08] MEDS: Docusate Sodium 100 MG CAPSULE PO (20:20)
[2025-02-08] MEDS: Melatonin 3 MG TABLET 6 MG PO (21:34)
[2025-02-08 23:48] VITALS: BP 104/58; PULSE 83; RESP 16; TEMP 36.3; O2SAT 97
[2025-02-09 03:44] VITALS: BP 98/61; PULSE 88; RESP 16; TEMP 36.2; O2SAT 99
[2025-02-09] MEDS: Omeprazole 20 MG CAPSULE.DR PO (05:36)
[2025-02-09 07:11] VITALS: BP 98/56; PULSE 88; RESP 18; TEMP 36.2; O2SAT 98
[2025-02-09] MEDS: 0.9 % Sodium Chloride Flush 3 ML SYRINGE IVFLUSH ×3 (09:29→19:23)
[2025-02-09] MEDS: polyethylene glycoL 3350 17 GM POWD.PACK PO (09:29)
[2025-02-09 15:37] VITALS: BP 97/55; PULSE 82; RESP 16; TEMP 36.1; O2SAT 99
--- NOTE | 2025-02-09 15:56 | PC.NURSE ---
Patient refused sequentials ,encouraged activity,risks explained
--- NOTE | 2025-02-09 15:59 | HO.PM.IMPN ---
Subjective Subjective Date of Service: 02/09/25 Interval History: Seen and examined this morning Follow-up for metastatic cancer No overnight events Review of Systems Review of Systems: Yes all other systems are reviewed and are negative Constitutional Constitutional: Denies chills and Denies fever(s) Physical Exam Vital Signs: Vital Signs: Last Vital Signs Temp 97.0 F 02/09/25 15:37 Pulse 82 02/09/25 15:37 Resp 16 02/09/25 15:37 BP 97/55 L 02/09/25 15:37 Pulse Ox 99 02/09/25 15:37 O2 Del Method Room Air 02/09/25 15:37 BMI result Body Mass Index 20.9 Const: Other: chronically ill-appearing General: no acute distress, alert and awake Nutritional Appearance: thin Orientation/consciousness: patient oriented x3 Eyes: Other: bilateral scleral icterus GI: Palpation (GI): Soft to palpation Skin: Other: jaundice Neuro: General: patient oriented x3 Objective Data Active Medications Benzonatate (Benzonatate 100 Mg Capsule) 100 mg PO TID PRN PRN Reason: Cough Last Admin: 02/02/25 08:26 Dose: 100 mg Documented By: PHAYULIANA Calcium Carbonate (Calcium Carbonate 750 Mg Tab.Chew) 750 mg PO Q4H PRN PRN Reason: Heartburn Last Admin: 02/08/25 20:20 Dose: 750 mg Documented By: CHELSEA Diphenhydramine HCl (Diphenhydramine Hcl 25 Mg Capsule) 25 mg PO Q6H PRN PRN Reason: Itching Last Admin: 02/08/25 20:20 Dose: 25 mg Documented By: CHELSEA Docusate Sodium (Docusate Sodium 100 Mg Capsule) 100 mg PO BEDTIME [facility] Last Admin: 02/08/25 20:20 Dose: 100 mg Documented By: CHELSEA Magnesium Hydroxide (Milk Of Magnesia 30 Ml Oral.Susp) 30 ml PO DAILY PRN PRN Reason: Constipation Melatonin (Melatonin 3 Mg Tablet) 6 mg PO BEDTIME PRN PRN Reason: Insomnia Last Admin: 02/08/25 21:34 Dose: 6 mg Documented By: CHELSEA Omeprazole (Omeprazole 20 Mg Capsule.Dr) 20 mg PO DAILY@0630 [facility] Last Admin: 02/09/25 05:36 Dose: 20 mg Documented By: CHELSEA Oxycodone HCl (Oxycodone Hcl Immed Release 5 Mg Tablet) 5 mg PO Q6H PRN PRN Reason: Pain, Moderate(Pain Scale 4-6) Last Admin: 02/08/25 11:51 Dose: 5 mg Documented By: ANGEL Polyethylene Glycol (Polyethylene Glycol 3350 17 Gm Powd.Pack) 17 gm PO DAILY [facility] Last Admin: 02/09/25 09:29 Dose: 17 gm Documented By: SHANAEONOCorry Sodium Chloride (0.9 % Sodium Chloride Flush 3 Ml Syringe) 3 ml IVFLUSH QSHIFT [facility] Last Admin: 02/09/25 15:20 Dose: 3 ml Documented By: BEIT Labs 02/04/25 06:22 02/04/25 06:22 Microbiology Microbiology Results: Microbiology 02/04/25 11:30 Gram Stain - Final Abdomen - Peritoneal Routine Culture - Final No growth after 2 days Anaerobic Culture - Final NO GROWTH AFTER 5 DAYS Assessment and Plan (1) Pancreatic mass: Status: Acute Plan 74-year-old male with a past medical history of alcohol use disorder who presented to the hospital with a chief complaint of generalized weakness and yellow skin Ascites. s/p paracentesis -3.3L removed sent for path-negative for malignant cells, so far cx neg s/p Ceftriaxone Pancreatic neoplasm/Gallbladder mass/Liver metastasis Transaminitis Elevated T bili CEA levels high Per CT scan concerning for possible primary pancreatic neoplasm seen by oncology following- pt has deferred any intervention; poor prognosis, hospice referral. goal home with hospice Acute blood loss anemia Secondary to occult GI blood loss. Stool guaiac positive s/p 2 units of PRBC Adult failure to thrive Protein calorie malnutrition ensure added to diet Alcohol use disorder Patient has stopped drinking about 3 weeks ago prior to admission. No signs of withdrawal DISPO home on hospice DVT prophylaxis: SCD boots Code status: DNR Quality Stroke Does the patient have a stroke diagnosis?: No VTE Prior VTE?: No VTE Risk Level:: Medical - moderate - high VTE Device Contraindication: N/A - Device Ordered VTE Drug Contraindication: Treatment Not Indicated
[2025-02-09] MEDS: oxyCODONE HCl Immed Release 5 MG TABLET PO (19:21)
[2025-02-09] MEDS: Docusate Sodium 100 MG CAPSULE PO (19:23)
[2025-02-09 19:59] VITALS: BP 98/57; PULSE 94; RESP 18; TEMP 36.9; O2SAT 100
[2025-02-10 03:33] VITALS: BP 98/55; PULSE 92; RESP 18; TEMP 36.3; O2SAT 98
[2025-02-10] MEDS: Omeprazole 20 MG CAPSULE.DR PO (06:07)
[2025-02-10 07:16] VITALS: BP 98/55; PULSE 88; RESP 14; TEMP 36.1; O2SAT 98
[2025-02-10] MEDS: polyethylene glycoL 3350 17 GM POWD.PACK PO (08:14)
[2025-02-10] MEDS: 0.9 % Sodium Chloride Flush 3 ML SYRINGE IVFLUSH (08:15)
--- NOTE | 2025-02-10 13:29 | PC.NURSE ---
OK to keep IV out per MADDY Baez
[2025-02-10 14:00] VITALS: BP 96/59; PULSE 87; RESP 16; TEMP 36.3; O2SAT 100
[2025-02-10] MEDS: oxyCODONE HCl Immed Release 5 MG TABLET PO (14:14)
--- NOTE | 2025-02-10 15:21 | P.PNIM_ITS ---
Subjective Subjective Date of Service: 02/10/25 Interval History: seen and examined this morning follow up for metastatic cancer no overnight events some abdominal distention Review of Systems Review of Systems: Yes all other systems are reviewed and are negative Constitutional Constitutional: Denies fever(s) Physical Exam 2 Vital Signs: Vital Signs: Last Vital Signs Temp 97.3 F 02/10/25 14:00 Pulse 87 02/10/25 14:00 Resp 16 02/10/25 14:00 BP 96/59 L 02/10/25 14:00 Pulse Ox 100 02/10/25 14:00 O2 Del Method Room Air 02/10/25 14:00 BMI result Body Mass Index 20.9 Const: Other: chronically ill-appearing General: no acute distress, alert and awake Nutritional Appearance: thin Orientation/consciousness: patient oriented x3 Eyes: Other: bilateral scleral icterus GI: Palpation (GI): Soft to palpation Skin: Other: jaundice Neuro: General: patient oriented x3 Objective Data Active Medications Benzonatate (Benzonatate 100 Mg Capsule) 100 mg PO TID PRN PRN Reason: Cough Last Admin: 02/02/25 08:26 Dose: 100 mg Documented By: KADE Calcium Carbonate (Calcium Carbonate 750 Mg Tab.Chew) 750 mg PO Q4H PRN PRN Reason: Heartburn Last Admin: 02/08/25 20:20 Dose: 750 mg Documented By: CHELSEA Diphenhydramine HCl (Diphenhydramine Hcl 25 Mg Capsule) 25 mg PO Q6H PRN PRN Reason: Itching Last Admin: 02/08/25 20:20 Dose: 25 mg Documented By: CHELSEA Docusate Sodium (Docusate Sodium 100 Mg Capsule) 100 mg PO BEDTIME [facility], [facility] Last Admin: 02/09/25 19:23 Dose: 100 mg Documented By: JOSE MANUEL Magnesium Hydroxide (Milk Of Magnesia 30 Ml Oral.Susp) 30 ml PO DAILY PRN PRN Reason: Constipation Melatonin (Melatonin 3 Mg Tablet) 6 mg PO BEDTIME PRN PRN Reason: Insomnia Last Admin: 02/08/25 21:34 Dose: 6 mg Documented By: CHELSEA Omeprazole (Omeprazole 20 Mg Capsule.) 20 mg PO DAILY@0630 [facility], [facility] Last Admin: 02/10/25 06:07 Dose: 20 mg Documented By: JOSE MANUEL Oxycodone HCl (Oxycodone Hcl Immed Release 5 Mg Tablet) 5 mg PO Q6H PRN PRN Reason: Pain, Moderate(Pain Scale 4-6) Last Admin: 02/10/25 14:14 Dose: 5 mg Documented By: KOMAL Polyethylene Glycol (Polyethylene Glycol 3350 17 Gm Powd.Pack) 17 gm PO DAILY [facility], [facility] Last Admin: 02/10/25 08:14 Dose: 17 gm Documented By: KOMAL Sodium Chloride (0.9 % Sodium Chloride Flush 3 Ml Syringe) 3 ml IVFLUSH QSHIFT [facility], [facility] Last Admin: 02/10/25 14:08 Dose: Not Given Documented By: KOMAL Non-Admin Reason: No Access Labs 02/04/25 06:22 02/04/25 06:22 Microbiology Microbiology Results: Microbiology 02/04/25 11:30 Gram Stain - Final Abdomen - Peritoneal Routine Culture - Final No growth after 2 days Anaerobic Culture - Final NO GROWTH AFTER 5 DAYS Assessment and Plan (1) Malnutrition: Status: Acute (2) Pancreatic mass: Status: Acute Plan 74-year-old male with a past medical history of alcohol use disorder who presented to the hospital with a chief complaint of generalized weakness and yellow skin Ascites. s/p paracentesis -3.3L removed sent for path-negative for malignant cells, so far cx neg s/p Ceftriaxone Pancreatic neoplasm/Gallbladder mass/Liver metastasis Transaminitis Elevated T bili CEA levels high Per CT scan concerning for possible primary pancreatic neoplasm seen by oncology following- pt has deferred any intervention; poor prognosis, hospice referral. goal home with hospice Acute blood loss anemia Secondary to occult GI blood loss. Stool guaiac positive s/p 2 units of PRBC Adult failure to thrive Protein calorie malnutrition ensure added to diet Alcohol use disorder Patient has stopped drinking about 3 weeks ago prior to admission. No signs of withdrawal DISPO home on hospice DVT prophylaxis: SCD boots Code status: DNR Quality Stroke Does the patient have a stroke diagnosis?: No VTE Prior VTE?: No VTE Risk Level:: Medical - moderate - high VTE Device Contraindication: N/A - Device Ordered VTE Drug Contraindication: Treatment Not Indicated
[2025-02-10 15:23] VITALS: BP 93/53; PULSE 91; RESP 16; TEMP 36.2; O2SAT 98
[2025-02-10 19:29] VITALS: BP 92/63; PULSE 94; RESP 17; TEMP 36.1; O2SAT 93
[2025-02-10] MEDS: Docusate Sodium 100 MG CAPSULE PO (20:11)
[2025-02-10 23:16] VITALS: BP 99/56; PULSE 90; RESP 17; TEMP 36.1; O2SAT 98
[2025-02-11 03:25] VITALS: BP 95/53; PULSE 90; RESP 17; TEMP 36.1; O2SAT 98
[2025-02-11] MEDS: oxyCODONE HCl Immed Release 5 MG TABLET PO ×2 (05:44→20:38)
[2025-02-11] MEDS: Omeprazole 20 MG CAPSULE.DR PO (05:44)
[2025-02-11 07:34] VITALS: BP 96/51; PULSE 93; RESP 18; TEMP 36.4; O2SAT 100
--- NOTE | 2025-02-11 08:53 | HO.PM.IMPN ---
Subjective Subjective Date of Service: 02/11/25 Interval History: seen and examined this morning follow up for metastatic cancer no overnight events much weaker today Review of Systems Review of Systems: Yes all other systems are reviewed and are negative Constitutional Constitutional: Denies fever(s) Physical Exam Vital Signs: Vital Signs: Last Vital Signs Temp 97.6 F 02/11/25 07:34 Pulse 93 02/11/25 07:34 Resp 18 02/11/25 07:34 BP 96/51 L 02/11/25 07:34 Pulse Ox 100 02/11/25 07:34 O2 Del Method Room Air 02/11/25 07:34 BMI result Body Mass Index 20.9 Appearing in no acute distress, jaundice, weak and frail appearing lung sounds are clear to auscultation heart regular rate rhythm, clear S1, S2 positive bowel sounds, abdomen is soft, nontender neuro patient is alert x3, no focal deficits Objective Data Active Medications Benzonatate (Benzonatate 100 Mg Capsule) 100 mg PO TID PRN PRN Reason: Cough Last Admin: 02/02/25 08:26 Dose: 100 mg Documented By: KADE Calcium Carbonate (Calcium Carbonate 750 Mg Tab.Chew) 750 mg PO Q4H PRN PRN Reason: Heartburn Last Admin: 02/08/25 20:20 Dose: 750 mg Documented By: CHELSEA Diphenhydramine HCl (Diphenhydramine Hcl 25 Mg Capsule) 25 mg PO Q6H PRN PRN Reason: Itching Last Admin: 02/08/25 20:20 Dose: 25 mg Documented By: CHELSEA Docusate Sodium (Docusate Sodium 100 Mg Capsule) 100 mg PO BEDTIME PAM Last Admin: 02/10/25 20:11 Dose: 100 mg Documented By: JOSE MANUEL Lactulose (Lactulose 20 Gm/30 Ml Solution) 20 gm PO DAILY PAM Magnesium Hydroxide (Milk Of Magnesia 30 Ml Oral.Susp) 30 ml PO DAILY PRN PRN Reason: Constipation Melatonin (Melatonin 3 Mg Tablet) 6 mg PO BEDTIME PRN PRN Reason: Insomnia Last Admin: 02/08/25 21:34 Dose: 6 mg Documented By: CHELSEA Omeprazole (Omeprazole 20 Mg Capsule.Dr) 20 mg PO DAILY@0630 P[facility] Last Admin: 02/11/25 05:44 Dose: 20 mg Documented By: JOSE MANUEL Oxycodone HCl (Oxycodone Hcl Immed Release 5 Mg Tablet) 5 mg PO Q6H PRN PRN Reason: Pain, Moderate(Pain Scale 4-6) Last Admin: 02/11/25 05:44 Dose: 5 mg Documented By: JOSE MANUEL Sodium Chloride (0.9 % Sodium Chloride Flush 3 Ml Syringe) 3 ml IVFLUSH QSHIFT [facility] Last Admin: 02/11/25 08:07 Dose: Not Given Documented By: OLGA LIDIA Non-Admin Reason: No Access Labs 02/04/25 06:22 02/04/25 06:22 Assessment and Plan (1) Malnutrition: Status: Acute (2) Pancreatic mass: Status: Acute Plan 74-year-old male with a past medical history of alcohol use disorder who presented to the hospital with a chief complaint of generalized weakness and yellow skin Adult failure to thrive Protein calorie malnutrition very weak and frail ensure added to diet Ascites. s/p paracentesis -3.3L removed sent for path-negative for malignant cells, so far cx neg s/p Ceftriaxone Pancreatic neoplasm/Gallbladder mass/Liver metastasis Transaminitis Elevated T bili CEA levels high Per CT scan concerning for possible primary pancreatic neoplasm seen by oncology following- pt has deferred any intervention; poor prognosis, hospice referral. goal home with hospice Acute blood loss anemia Secondary to occult GI blood loss. Stool guaiac positive s/p 2 units of PRBC Alcohol use disorder Patient has stopped drinking about 3 weeks prior to admission. No signs of withdrawal DISPO home on hospice DVT prophylaxis: SCD boots Code status: DNR Quality Stroke Does the patient have a stroke diagnosis?: No VTE Prior VTE?: No VTE Risk Level:: Medical - moderate - high VTE Device Contraindication: N/A - Device Ordered VTE Drug Contraindication: Treatment Not Indicated
[2025-02-11 09:19] LABS: Hematocrit 26.8 % (42.0-52.0); Hemoglobin 8.7 g/dl (14.0-18.0); Mean Corpuscular HGB Conc 32.5 g/dl (31.0-36.0); Mean Corpuscular Hemoglobin 24.7 pg (27.0-33.0); Mean Corpuscular Volume 76.1 fL (80.0-98.0); Mean Platelet Volume 10.5 fL (9.4-12.4); Platelet Count 194 X10*3/uL (160-400); Red Blood Count 3.52 X10*6/uL (4.60-5.80); Red Cell Distribution Width 22.2 % (11.0-16.0); White Blood Count 14.6 X10*3/uL (4.8-10.8)
[2025-02-11 09:21] LABS: Ammonia 98 umol/L (13-55)
[2025-02-11 09:27] LABS: Alanine Aminotransferase 70 U/L (0-40); Alkaline Phosphatase 304 U/L (39-117); Anion Gap 13 (12-20); Aspartate Amino Transferase 179 U/L (5-37); Bilirubin Direct 13.8 mg/dL (0.0-0.5); Bilirubin Total 20.4 mg/dL (0.0-1.0); Blood Urea Nitrogen 68 mg/dL (9-16); Carbon Dioxide 18 mmol/L (22-29); Chloride 101 mmol/L (96-108); Creatinine Clr Calc Pharmacy 46.7; Estimated Glomerular Filt Rate > 60; Glucose Random 104 mg/dL (60-115); Potassium 4.2 mmol/L (3.3-5.1); Sodium 128 mmol/L (135-145); Total Protein 5.5 g/dL (6.5-8.0)
[2025-02-11 12:00] VITALS: BP 102/57; PULSE 85; RESP 18; TEMP 36.2; O2SAT 97
--- NOTE | 2025-02-11 13:40 | MHC.CLN ---
F/U REGULAR DIET PT RECEIVING ENSURE TID (1050KCALS, 60G PROTEIN). PO INTAKE X 2 DAYS 25-75%. SKIN WITH REDNESS TO BILATERAL HEELS. PLAN IS TO D/C HOME WITH HOSPICE CARE. CONTINUE TO MONITOR PO INTAKE AND ENCOURAGE SUPPLEMENTS.
[2025-02-11 15:15] VITALS: BP 131/86; PULSE 88; RESP 18; TEMP 36.7; O2SAT 96
--- NOTE | 2025-02-11 15:33 | MHC.CM.PN ---
per rounds pt not ready for dc labs pt on hospice
[2025-02-11 19:20] VITALS: BP 131/80; PULSE 94; RESP 18; TEMP 36; O2SAT 98
[2025-02-11] MEDS: Docusate Sodium 100 MG CAPSULE PO (20:38)
[2025-02-11] MEDS: Melatonin 3 MG TABLET 6 MG PO (20:38)
[2025-02-11] MEDS: Lactulose 20 GM/30 ML SOLUTION 30 GM PO (20:46)
[2025-02-11 23:43] VITALS: BP 100/59; PULSE 89; RESP 16; TEMP 36; O2SAT 100
[2025-02-12 03:16] VITALS: BP 118/61; PULSE 94; RESP 16; TEMP 36.1; O2SAT 98
[2025-02-12 07:27] VITALS: BP 114/64; PULSE 104; RESP 19; TEMP 36.6; O2SAT 97
--- NOTE | 2025-02-12 08:42 | P.PNIM_ITS ---
Subjective Subjective Date of Service: 02/12/25 Interval History: seen and examined this morning follow up for metastatic cancer no overnight events much weaker today Review of Systems Review of Systems: Yes all other systems are reviewed and are negative Constitutional Constitutional: Denies fever(s) Physical Exam 2 Vital Signs: Vital Signs: Last Vital Signs Temp 98 F 02/12/25 07:27 Pulse 104 H 02/12/25 07:27 Resp 19 02/12/25 07:27 BP 114/64 02/12/25 07:27 Pulse Ox 97 02/12/25 07:27 O2 Del Method Room Air 02/12/25 07:27 O2 Flow Rate 2 02/11/25 23:43 BMI result Body Mass Index 20.9 Appearing in no acute distress lung sounds are clear to auscultation heart regular rate rhythm, clear S1, S2 positive bowel sounds, abdomen is soft, nontender neuro patient is alert x3, no focal deficits Objective Data Active Medications Benzonatate (Benzonatate 100 Mg Capsule) 100 mg PO TID PRN PRN Reason: Cough Last Admin: 02/02/25 08:26 Dose: 100 mg Documented By: KADE Calcium Carbonate (Calcium Carbonate 750 Mg Tab.Chew) 750 mg PO Q4H PRN PRN Reason: Heartburn Last Admin: 02/08/25 20:20 Dose: 750 mg Documented By: CHELSEA Diphenhydramine HCl (Diphenhydramine Hcl 25 Mg Capsule) 25 mg PO Q6H PRN PRN Reason: Itching Last Admin: 02/08/25 20:20 Dose: 25 mg Documented By: CHELSEA Docusate Sodium (Docusate Sodium 100 Mg Capsule) 100 mg PO BEDTIME PAM Last Admin: 02/11/25 20:38 Dose: 100 mg Documented By: MARNIE Lactulose (Lactulose 20 Gm/30 Ml Solution) 30 gm PO BID PAM Last Admin: 02/11/25 20:46 Dose: 30 gm Documented By: MARNIE Magnesium Hydroxide (Milk Of Magnesia 30 Ml Oral.Susp) 30 ml PO DAILY PRN PRN Reason: Constipation Melatonin (Melatonin 3 Mg Tablet) 6 mg PO BEDTIME PRN PRN Reason: Insomnia Last Admin: 02/11/25 20:38 Dose: 6 mg Documented By: MARNIE Omeprazole (Omeprazole 20 Mg Capsule.Dr) 20 mg PO DAILY@0630 [facility] Last Admin: 02/12/25 06:02 Dose: Not Given Documented By: MARNIE Non-Admin Reason: Patient Condition Contraindication Oxycodone HCl (Oxycodone Hcl Immed Release 5 Mg Tablet) 5 mg PO Q6H PRN PRN Reason: Pain, Moderate(Pain Scale 4-6) Last Admin: 02/11/25 20:38 Dose: 5 mg Documented By: MARNIE Sodium Chloride (0.9 % Sodium Chloride Flush 3 Ml Syringe) 3 ml IVFLUSH QSWAFT [facility] Last Admin: 02/12/25 00:07 Dose: Not Given Documented By: MARNIE Non-Admin Reason: No Access Labs 02/11/25 09:04 02/11/25 09:04 Labs: Laboratory Results - last 24 hr 02/11/25 09:04 MCV 76.1 L MCH 24.7 L MCHC 32.5 RDW 22.2 H Plt Count 194 MPV 10.5 Absolute Nucleated RBC 0.000 Nucleated RBC % (auto) 0.0 Anion Gap 13 Estim Creat Clear Calc 46.7 Estimated GFR > 60 Random Glucose 104 Calcium 8.0 L Total Bilirubin 20.4 H Direct Bilirubin 13.8 H AST 179 H ALT 70 H Alkaline Phosphatase 304 H Ammonia 98 H Total Protein 5.5 L Albumin 2.0 L Assessment and Plan (1) Malnutrition: Status: Acute (2) Pancreatic mass: Status: Acute Plan 74-year-old male with a past medical history of alcohol use disorder who presented to the hospital with a chief complaint of generalized weakness and yellow skin Pancreatic neoplasm/Gallbladder mass/Liver metastasis Transaminitis Elevated T bili CEA levels high Per CT scan concerning for possible primary pancreatic neoplasm seen by oncology following- pt has deferred any intervention; poor prognosis, hospice referral. goal home with hospice Patient is declining quickly and will likely not make it home on Hospice, will likely pass away here, attempted to call all 3 children this morning, no answer, VM left for son Shaan Adult failure to thrive Protein calorie malnutrition very weak and frail ensure added to diet Ascites. s/p paracentesis -3.3L removed sent for path-negative for malignant cells, so far cx neg s/p Ceftriaxone Acute blood loss anemia Secondary to occult GI blood loss. Stool guaiac positive s/p 2 units of PRBC Alcohol use disorder Patient has stopped drinking about 3 weeks prior to admission. No signs of withdrawal DISPO home on hospice DVT prophylaxis: SCD boots Code status: DNR Quality Stroke Does the patient have a stroke diagnosis?: No VTE Prior VTE?: No VTE Risk Level:: Medical - moderate - high VTE Device Contraindication: N/A - Device Ordered VTE Drug Contraindication: Treatment Not Indicated
[2025-02-12 11:23] VITALS: BP 95/56; PULSE 92; RESP 19; TEMP 36.3; O2SAT 97
[2025-02-12 19:20] VITALS: BP 104/58; PULSE 96; RESP 18; TEMP 36.6; O2SAT 98
[2025-02-12] MEDS: Morphine Sulfate 2 MG/ML CARTRIDGE 1 MG IVPUSH ×2 (20:50→23:07)
[2025-02-12] MEDS: LORazepam 2 MG/ML VIAL 1 MG IVPUSH ×2 (20:50→23:51)
[2025-02-12] MEDS: 0.9 % Sodium Chloride Flush 3 ML SYRINGE IVFLUSH (22:57)
[2025-02-13] MEDS: Scopolamine 1.5 MG PATCH.TD.3 EAR-BEHIND (01:10)
[2025-02-13 03:02] VITALS: RESP 14
[2025-02-13] MEDS: LORazepam 2 MG/ML VIAL 1 MG IVPUSH ×3 (03:59→18:21)
[2025-02-13] MEDS: Morphine Sulfate 2 MG/ML CARTRIDGE 1 MG IVPUSH ×7 (03:59→23:29)
[2025-02-13] MEDS: 0.9 % Sodium Chloride Flush 3 ML SYRINGE IVFLUSH ×2 (07:57→23:30)
[2025-02-13 08:20] VITALS: RESP 24
--- NOTE | 2025-02-13 12:03 | HO.PM.IMPN ---
Subjective Subjective Date of Service: 02/13/25 Interval History: seen and examined this morning follow up for metastatic cancer no overnight events somnolent Review of Systems Review of Systems: Yes all other systems are reviewed and are negative Constitutional Constitutional: Denies fever(s) Physical Exam Vital Signs: Vital Signs: Last Vital Signs Temp 97.8 F 02/12/25 19:20 Pulse 96 02/12/25 19:20 Resp 24 H 02/13/25 08:20 BP 104/58 L 02/12/25 19:20 Pulse Ox 98 02/12/25 19:20 O2 Del Method Room Air 02/12/25 19:20 O2 Flow Rate 2 02/11/25 23:43 BMI result Body Mass Index 20.9 Appearing in no acute distress lung sounds are clear to auscultation heart regular rate rhythm, clear S1, S2 positive bowel sounds, abdomen is soft, nontender neuro patient is alert x3, no focal deficits Objective Data Active Medications Diphenhydramine HCl (Diphenhydramine Hcl 25 Mg Capsule) 25 mg PO Q6H PRN PRN Reason: Itching Last Admin: 02/08/25 20:20 Dose: 25 mg Documented By: CHELSEA Lorazepam (Lorazepam 2 Mg/Ml Vial) 1 mg IVPUSH Q4H PRN PRN Reason: anxiety/restlessness Last Admin: 02/13/25 03:59 Dose: 1 mg Documented By: IMTIAZ Magnesium Hydroxide (Milk Of Magnesia 30 Ml Oral.Susp) 30 ml PO DAILY PRN PRN Reason: Constipation Morphine Sulfate (Morphine Sulfate 2 Mg/Ml Cartridge) 1 mg IVPUSH Q1H PRN; Protocol PRN Reason: Pain and or tachypnea Last Admin: 02/13/25 10:27 Dose: 1 mg Documented By: MONSERRAT Comments: Scopolamine (Scopolamine 1.5 Mg Patch.Td.3) 1.5 mg EAR-BEHIND Q72H [facility] Last Admin: 02/13/25 01:10 Dose: 1.5 mg Documented By: IMTIAZ Sodium Chloride (0.9 % Sodium Chloride Flush 3 Ml Syringe) 3 ml IVFLUSH QSHIFT [facility] Last Admin: 02/13/25 07:57 Dose: 3 ml Documented By: MONSERRAT Labs 02/11/25 09:04 02/11/25 09:04 Assessment and Plan (1) Malnutrition: Status: Acute (2) Pancreatic mass: Status: Acute Plan 74-year-old male with a past medical history of alcohol use disorder who presented to the hospital with a chief complaint of generalized weakness and 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 goal home with hospice Patient is declining quickly and will likely not make it home on Hospice, will likely pass away here, attempted to call all 3 children this morning, no answer, VM left for son Shaan Adult failure to thrive Protein calorie malnutrition very weak and frail ensure added to diet Ascites. s/p paracentesis -3.3L removed sent for path-negative for malignant cells, so far cx neg s/p Ceftriaxone Acute blood loss anemia Secondary to occult GI blood loss. Stool guaiac positive s/p 2 units of PRBC Alcohol use disorder Patient has stopped drinking about 3 weeks prior to admission. 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
--- NOTE | 2025-02-13 13:31 | MHC.CLN ---
F/U PATIENT IS NOW COMFORT MEASURES ONLY. RD AVAILABLE NEEDED.
--- NOTE | 2025-02-13 15:51 | MHC.CM.PN ---
per rounds pt is poor
[2025-02-14] MEDS: Morphine Sulfate 2 MG/ML CARTRIDGE 1 MG IVPUSH ×3 (06:04→22:58)
[2025-02-14] MEDS: 0.9 % Sodium Chloride Flush 3 ML SYRINGE IVFLUSH ×3 (09:22→22:58)
--- NOTE | 2025-02-14 14:24 | P.PNIM_ITS ---
Subjective Subjective Date of Service: 02/14/25 Interval History: does not wake to verbal stimuli, appears comfortable Physical Exam 2 Vital Signs: Vital Signs: Last Vital Signs Temp 97.8 F 02/12/25 19:20 Pulse 96 02/12/25 19:20 Resp 24 H 02/13/25 08:20 BP 104/58 L 02/12/25 19:20 Pulse Ox 98 02/12/25 19:20 O2 Del Method Room Air 02/12/25 19:20 O2 Flow Rate 2 02/11/25 23:43 BMI result Body Mass Index 20.9 Const: Other: appears comfortable Objective Data Active Medications Diphenhydramine HCl (Diphenhydramine Hcl 25 Mg Capsule) 25 mg PO Q6H PRN PRN Reason: Itching Last Admin: 02/08/25 20:20 Dose: 25 mg Documented By: CHELSEA Lorazepam (Lorazepam 2 Mg/Ml Vial) 1 mg IVPUSH Q4H PRN PRN Reason: anxiety/restlessness Last Admin: 02/13/25 18:21 Dose: 1 mg Documented By: MONSERRAT Comments: Magnesium Hydroxide (Milk Of Magnesia 30 Ml Oral.Susp) 30 ml PO DAILY PRN PRN Reason: Constipation Morphine Sulfate (Morphine Sulfate 2 Mg/Ml Cartridge) 1 mg IVPUSH Q1H PRN; Protocol PRN Reason: Pain and or tachypnea Last Admin: 02/14/25 13:16 Dose: 1 mg Documented By: FREDDIE Scopolamine (Scopolamine 1.5 Mg Patch.Td.3) 1.5 mg EAR-BEHIND Q72H [facility] Last Admin: 02/13/25 01:10 Dose: 1.5 mg Documented By: IMTIAZ Sodium Chloride (0.9 % Sodium Chloride Flush 3 Ml Syringe) 3 ml IVFLUSH QSHIFT [facility] Last Admin: 02/14/25 09:22 Dose: 3 ml Documented By: FREDDIE Labs 02/11/25 09:04 02/11/25 09:04 Assessment and Plan (1) Pancreatic mass: Status: Acute Plan 74-year-old male with a past medical history of alcohol use disorder who presented to the hospital with a chief complaint of 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
[2025-02-15 01:00] VITALS: RESP 14
[2025-02-15] MEDS: Morphine Sulfate 2 MG/ML CARTRIDGE 1 MG IVPUSH ×2 (04:47→10:33)
[2025-02-15] MEDS: 0.9 % Sodium Chloride Flush 3 ML SYRINGE IVFLUSH ×2 (07:51→16:11)
--- NOTE | 2025-02-15 10:44 | MHC.CLN ---
F/U DIET CHANGED TO FEED FROM FLOOR STOCK. PATIENT CONTINUES COMFORT MEASURES ONLY.
--- NOTE | 2025-02-15 12:14 | P.PNIM_ITS ---
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, appears comfortable Physical Exam 2 Vital Signs: Vital Signs: Last Vital Signs Temp 97.8 F 02/12/25 19:20 Pulse 96 02/12/25 19:20 Resp 14 02/15/25 01:00 BP 104/58 L 02/12/25 19:20 Pulse Ox 98 02/12/25 19:20 O2 Del Method Room Air 02/12/25 19:20 O2 Flow Rate 2 02/11/25 23:43 BMI result Body Mass Index 20.9 Const: Other: appears comfortable Objective Data Active Medications Diphenhydramine HCl (Diphenhydramine Hcl 25 Mg Capsule) 25 mg PO Q6H PRN PRN Reason: Itching Last Admin: 02/08/25 20:20 Dose: 25 mg Documented By: CHELSEA Lorazepam (Lorazepam 2 Mg/Ml Vial) 1 mg IVPUSH Q4H PRN PRN Reason: anxiety/restlessness Last Admin: 02/13/25 18:21 Dose: 1 mg Documented By: MONSERRAT Comments: Magnesium Hydroxide (Milk Of Magnesia 30 Ml Oral.Susp) 30 ml PO DAILY PRN PRN Reason: Constipation Morphine Sulfate (Morphine Sulfate 2 Mg/Ml Cartridge) 1 mg IVPUSH Q1H PRN; Protocol PRN Reason: Pain and or tachypnea Last Admin: 02/15/25 10:33 Dose: 1 mg Documented By: FREDDIE Scopolamine (Scopolamine 1.5 Mg Patch.Td.3) 1.5 mg EAR-BEHIND Q72H [facility] Last Admin: 02/13/25 01:10 Dose: 1.5 mg Documented By: IMTIAZ Sodium Chloride (0.9 % Sodium Chloride Flush 3 Ml Syringe) 3 ml IVFLUSH QSHIFT [facility] Last Admin: 02/15/25 07:51 Dose: 3 ml Documented By: FREDDIE Labs 02/11/25 09:04 02/11/25 09:04 Assessment and Plan (1) Pancreatic mass: Status: Acute Plan 74-year-old male with a past medical history of alcohol use disorder who presented to the hospital with a chief complaint of generalized weakness and 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
--- NOTE | 2025-02-15 12:46 | MHC.CM.PN ---
pt s condition remains poor
[2025-02-15 17:22] VITALS: RESP 16
--- NOTE | 2025-02-15 17:23 | PC.NURSE ---
Patient resting,sleeping ,appear comfortable,3 family members at bedside
[2025-02-16] MEDS: 0.9 % Sodium Chloride Flush 3 ML SYRINGE IVFLUSH (00:41)
[2025-02-16 00:50] VITALS: RESP 30
[2025-02-16] MEDS: Morphine Sulfate 2 MG/ML CARTRIDGE 1 MG IVPUSH ×2 (00:50→04:09)
[2025-02-16] MEDS: Scopolamine 1.5 MG PATCH.TD.3 EAR-BEHIND (00:57)
--- NOTE | 2025-02-16 03:19 | PC.NURSE ---
patient has been resting with eyes closed since the start of my shift @1900, he initially had family members at the bedside when I went in room that have since gone home. we have been repositioning q2h and doing hourly rounding. around 00:50 I did administer morphine for tachypnea as his respirations were in the 30's. at this hour respirations 24/min, patient still resting with eyes closed.
[2025-02-16 04:09] VITALS: RESP 36
--- NOTE | 2025-02-16 07:26 | PM.DDS ---
Discharge Sum: Prov Provider Primary care physician: Diana Orantes MD Consults: 02/01/25 05:57 Consult to Gastroenterology Routine Consulting Provider: Yaneth Lomeli Reason for consultation: Pancreatic neoplasm suspected; liver lesions; elevated T bili Consult to Hematology / Oncology Routine Consulting Provider: [facility] Oncology/Hematology Reason for consultation: Pancreatic neoplasm suspected; liver lesions 02/01/25 14:02 Consult to Case Management Routine Comment: Discharge Sum: Diag Contributing Factors (1) Pancreatic mass: Discharge Sum: Summary Date and Time Date of admission: 02/01/25 05:58 Date of : 02/16/25 Time of : 07:18 Summary Details: To go as per admitting provider. 74-year-old male with a past medical history of alcohol use disorder presented to the hospital today with a chief complaint of generalized weakness. Patient reports that for about 3 weeks he has been not feeling well; has been feeling generally weak and tired. Other day when he went to groceries he felt exhausted, had shortness of breath on with minimal activity. Mentions at baseline he used to drink about 50 beers per day-which he stopped drinking about 3 weeks ago. Mentions his appetite is almost 0 and has not been eating. Also noted his skin color change to yellow. Reports having diffuse abdominal discomfort. Mentions few days ago he had bright red blood per rectum. Denies any chest pain or palpitations. Denies any urinary symptoms. Denies any fever chills cough or sputum production. Patient mentioned he lost almost 30 lb in past 3-4 weeks.Review of all other systems is negative except mentioned aboveER course: Per ER team, patient appeared eat today, has distended abdomen, CT abdomen pelvis showed numerous hepatic hypodensities concerning for metastatic disease, and has a gallbladder mass suspicious for malignancy, also hypo enhancing peripancreatic soft tissue worrisome for lymphadenopathy or possible primary pancreatic neoplasm. Also noted colonic thickening concerning for neoplasm versus infectious versus inflammatory colitis. Noted moderate volume ascites-malignant ascites not excluded; on labs noted to have leukocytosis of 18.5; hemoglobin of 6.9-patient being transfused 2 units of PRBC. Stool guaiac positive. T bili 14.4. AST 2018 ALT 95 albumin 1.8 Pancreatic neoplasm/Gallbladder mass/Liver metastasis, Transaminitis, Elevated T bili, CEA levels high. Per CT scan concerning for possible primary pancreatic neoplasm - seen by oncology following- pt has deferred any intervention; poor prognosis, hospice referral. goal home with hospice. Initially planned for home with hospice but Patient declined rapidly and code status change to [employer]. Patient peacefully at 07:18 additional dianoses: Adult failure to thrive severe Protein calorie malnutrition Ascites, possible malignant ascites Acute blood loss anemia, Secondary to occult GI blood loss. Alcohol use disorder, No signs of withdrawal during admission hyponatremia due to cirrhosis Additional Data Attending physician: MADDY Reardon
--- NOTE | 2025-03-04 07:38 | P.CDIM_ITS ---
PROVIDER RESPONSE TEXT: To clarify, the appropriate diagnosis supported by the clinical indicators: Acute on chronic liver failure QUERY TEXT: PHYSICIAN'S DOCUMENTATION REQUEST Date of Query: 02/27/2025 08:46 AM EDT Patient Name: Nickolas Galdamez Admit Date: 02/01/2025 Dear Dania Sahu [employer], RETROSPECTIVE QUERY A review of the medical record indicates additional documentation may be needed. Please review below and update the documentation accordingly. Clinical Indicators: Hem/Onc Consultation note dated 02/01/25 - jaundice, weakness, cachectic appearing with a history of c hronic alcohol abuse. Patient presented with severe jaundice and liver failure. He has developed ascites. He has developed severe anemia, liver failure with total bilirubin of 14.4. He has widely metastatic malignancy, tissue diagnosis is possible with biopsy of liver lesion. Progress notes 02/02/25: Pancreatic neoplasm, gallbladder mass, liver metastasis. Hematology oncology following, poor prognosis, hospice referral. Based on the above, could you clarify the appropriate diagnosis from the above information, if any: Acute/subacute liver failure with ascites possible, probable, suspected, cannot rule out etc. Acute on chronic liver failure Other specifics to the noted liver failure Other (explain) Clinically unable to determine (explain) Thank you, Sheron Lynn, CCS, CDIS Use of terms such as suspected, likely, concern for, or probable (associated with a specific diagnosi s that is being evaluated, monitored, or treated as if it exists) are acceptable and can be coded in the inpatient se tting, when documented at the time of discharge. Please use your independent medical judgment in providing your response. THIS QUERY IS PART OF THE PERMANENT MEDICAL RECORD
== END 2025-02-16 10:49 | disposition expired | DRG 435 ==
LOC: HO.ED 02-01 02:16 → HO.EDOVER 02-01 06:05 → HO.IMC 02-01 17:11 → HO.S3 02-06 12:10
PROVIDERS: Nurse Practitioner Acute Care; Radiology Diagnostic Radiology; Admitting Provider Hospitalist; Emergency Provider Emergency Medicine; PCP Student in an Organized Health Care Education/Training Program; Visit Provider Physician Assistant Medical
PROC: 0W9G3ZZ Drainage of Peritoneal Cavity, Percutaneous Approach (ICD-10-PCS; principal; 2025-02-04 11:00)
DX: C25.8 Malignant neoplasm of overlapping sites of pancreas (principal); E43 Unspecified severe protein-calorie malnutrition; K72.00 Acute and subacute hepatic failure without coma; C78.7 Secondary malignant neoplasm of liver and intrahepatic bile duct; D62 Acute posthemorrhagic anemia; E87.1 Hypo-osmolality and hyponatremia; K92.2 Gastrointestinal hemorrhage, unspecified; R18.0 Malignant ascites; K74.60 Unspecified cirrhosis of liver; K72.10 Chronic hepatic failure without coma; Z51.5 Encounter for palliative care; Z66 Do not resuscitate; K72.90 Hepatic failure, unspecified without coma; F10.21 Alcohol dependence, in remission; Z68.20 Body mass index [BMI] 20.0-20.9, adult
CPT/HCPCS: 36415; 49083; 74177; 80048; 80053; 80076; 80307; 81001; 82105; 82140; 82272; 82378; 83690; 83735; 85025; 85027; 85610; 86850; 86900; 86901; 86923; 87040; 87070; 87073; 87205; 88112; 88305; 89051; 99285; J0696; J2003; J2060; J2270; P9016; P9047; Q9967

== ENCOUNTER → 2025-01-31 22:06 | Outpatient (BNV) | payer MEDICARE, MEDICAID, SELFPAY | PROVIDERS: Emergency Provider Emergency Medicine; PCP Student in an Organized Health Care Education/Training Program; Visit Provider Radiology Diagnostic Radiology | DX: K76.89 Other specified diseases of liver (principal); K82.8 Other specified diseases of gallbladder; R18.8 Other ascites | CPT/HCPCS: 74177 ==

== ENCOUNTER 2025-02-01 05:58 | Outpatient (BNV) | payer MEDICARE, MEDICAID, SELFPAY | END 2025-02-04 07:00 | PROVIDERS: Admitting Provider Hospitalist; Emergency Provider Emergency Medicine; PCP Student in an Organized Health Care Education/Training Program; Visit Provider Radiology Diagnostic Radiology | DX: R18.8 Other ascites (principal) | CPT/HCPCS: 49083 ==

== ENCOUNTER → 2025-02-01 05:58 | Outpatient (BNV) | payer MEDICARE, MEDICAID, SELFPAY | PROVIDERS: Admitting Provider Hospitalist; Emergency Provider Emergency Medicine; PCP Student in an Organized Health Care Education/Training Program; Visit Provider Internal Medicine | DX: K86.89 Other specified diseases of pancreas (principal) | CPT/HCPCS: 99232; 99499 ==

== ENCOUNTER → 2025-02-01 05:58 | Outpatient (BNV) | payer MEDICARE, MEDICAID, SELFPAY | PROVIDERS: Admitting Provider Hospitalist; Emergency Provider Emergency Medicine; PCP Student in an Organized Health Care Education/Training Program; Visit Provider Internal Medicine | DX: D37.8 Neoplasm of uncertain behavior of other specified digestive organs (principal); D64.9 Anemia, unspecified | CPT/HCPCS: 99222 ==